=== PATIENT | male | born 1970 | race Caucasian/White ===

== ENCOUNTER 2020-09-25 17:03 | Emergency (ER) | payer MEDICAID, SELFPAY ==
[2020-09-25 17:13] VITALS: BP 225/120; PULSE 83; RESP 16; TEMP 36.6; O2SAT 97
--- NOTE | 2020-09-25 17:19 | W.ED.GENAD ---
Discharge Plan Disposition Patient Disposition: HOME Condition: Stable Discharge Details Clinical Impression: Tooth ache, Initial high blood pressure determined by examination Primary Care Provider: Lana,Local ED Provider: Haylie Miles Home Meds and New Rx's Prescriptions: New amoxicillin-pot clavulanate [Augmentin] 875-125 mg tablet 1 tab PO BID 5 Days Qty: 10 RF: 0 Discharge Instructions Instructions: Toothache (ED) Additional Instructions: Use Hurricaine gel as directed up to 2-3 times a day. Please take Tylenol or Ibuprofen with food every 4-6 hours as needed for pain and swelling. Take antibiotics as directed. You will still need to see a dentist. You are also placed on a care management list to establish PCP to address her blood pressure and general health and wellbeing. Medical Decision Making 50-year-old male presents to the ED with chief complaint of left lower incisor pain. He has a broken tooth which he states has been like that for a a while worse pain over the last 5 days. Denies any problems swallowing, no sore throat, no swelling, no drainage. He denies any sensitivity to heat or cold. He states that he has called every dentist in the near vicinity and cannot get an appointment. He is requesting an antibiotic. On initial exam there is no evidence of abscess or area of fluctuance.He has been taking Ibuprofen which has helped somewhat. Patient was given Hurricaine gel here in department and to go, he was given 30 tablets of Augmentin to go and a prescription for 5 days of Augmentin twice daily. Patient was given dental resources and placed on the care management list with establish care with primary care provider. Discussed blood pressure modification, discuss strict return instructions and verbalized understanding. HPI General Mode of arrival: ambulatory. Date/Time Provider Initiated Documentation: 09/25/20 17:10. Limitations to Documentation: no limitations. Information obtained by: patient. HPI Narrative: 50-year-old male presents to the ED with chief complaint of left lower incisor pain. He has a broken tooth which he states has been like that for a a while worse pain over the last 5 days. Denies any problems swallowing, no sore throat, no swelling, no drainage. He denies any sensitivity to heat or cold. He states that he has called every dentist in the near vicinity and cannot get an appointment. He is requesting an antibiotic. On initial exam there is no evidence of abscess or area of fluctuance.He has been taking Ibuprofen which has helped somewhat. Related Data Home Medications Medication Instructions Recorded Confirmed amoxicillin-pot clavulanate 1 tab PO BID 5 Days #10 tab 09/25/20 [Augmentin] Previous Rx's Medication Instructions Recorded amoxicillin-pot clavulanate 1 tab PO BID 5 Days #10 tab 09/25/20 [Augmentin] General Stated Complaint: DentalOral PAZ: 4 Review of Systems Narrative: Constitutional: Negative for weight loss, alert and oriented, well groomed, normal body habitus, appears comfortable. HEENT: Denies trauma, headaches, blurry vision, nasal discharge, sore throat, trouble swallowing. Reports left lower incisor tooth pain worse over the last 4 to 5 days. Chest: Denies chest pain, palpitations, irregular rhythm, hypertension. Respiratory: Denies Shortness of breath, cough, hemoptysis. GI: Denies abdominal pain, nausea, vomiting, diarrhea, constipation. : Denies dysuria, hematuria, flank pain, rectal bleeding. Neuro: Denies dizziness, blurry vision, weakness, syncope, headache or facial numbness. Hematologic: Denies easy bruising, intolerance to heat or cold, hair loss. [facility] Social History Smoking/Tobacco Use Status: Never Smoking risk assessment performed?: Yes Alcohol Intake: current Alcohol Intake frequency: a few times a week Drug use: Never Substance use type: does not use Do you feel safe at home: Yes Do you feel safe in your relationship?: Yes Exam Narrative Exam Narrative: Constitutional: Alert and oriented x3. Appears stated age. Normal body habitus. Head: Normocephalic, no trauma. Eyes: Pupils PERRLA, Red reflex noted, EOM's intact. Eyelids symmetrical without lesions, discharge, or swelling. ENT: Bilateral TM's WNL, External ear normal to inspection, no mastoid TTP, swelling, or erythema, Nasal turbinates WNL, no nasal discharge. He does have a left lower incisor #22 which is broken down to the dentin, slightly erythemic surrounding gingiva, no visualized abscess or palpated area of fluctuance. He also has a broken right lower molar, #31 and number 32. Which appears chronic. No surrounding abscess or area of fluctuance to that broken tooth either., Posterior pharynx WNL, no exudate. Chest: RRR, Normal S1, S2, distal pulses intact. Patient is hypertensive upon initial exam at 225/120 with a manual blood pressure reading. Resp: Lungs clear to auscultation bilaterally, no wheezes, rales, or rhonchi. Course Vital Signs Vital signs: Vital Signs Temperature 36.6 C 09/25/20 17:13 Pulse 83 09/25/20 17:13 Respiratory Rate 16 09/25/20 17:13 Pulse Oximetry 97 09/25/20 17:13 Temperature 36.6 C 09/25/20 17:13 Temperature Source Tympanic 09/25/20 17:13 Pulse 83 09/25/20 17:13 Respiratory Rate 16 09/25/20 17:13 Respiratory Effort Non-Labored 09/25/20 17:15 Blood Pressure Position Sitting 09/25/20 17:13 Pulse Oximetry 97 09/25/20 17:13 Oxygen Delivery Method Room Air 09/25/20 17:13 Oxygen Flow Rate 0 09/25/20 17:13 Pain Level 7 09/25/20 17:15
--- NOTE | 2020-09-25 17:26 | NUR.NOTE ---
Nursing Note: Referral to Care Management to establish pcp for 1-2 week f/u. Patient hypotensive in ED.
[2020-09-25] MEDS: Amox. 875/Clav. 125, 2 TABS/BTL 1 TAB PO (17:43)
[2020-09-25] MEDS: Benzocaine 20% Gel 30 GM JAR MM (17:43)
[2020-09-25] MEDS: Amoxicillin 875/Clav. 125 TAB PO (17:43)
== END 2020-09-25 17:43 | disposition home or self-care (01) ==
PROVIDERS: Emergency Provider Registered Nurse Emergency
DX: R03.0 Elevated blood-pressure reading, without diagnosis of hypertension (principal); K08.89 Other specified disorders of teeth and supporting structures
CPT/HCPCS: 99283

== ENCOUNTER 2020-09-27 19:02 | Outpatient (REF) | payer MEDICAID, SELFPAY ==
[2020-09-27 15:41] LABS: Abs Immature Grans 0.01 10^3/uL (0.0-0.06); Absolute Basophil Count 0.05 10^3/uL (0.0-0.2); Absolute Eosinophil Count 0.06 10^3/uL (0.0-0.7); Absolute Lymphocyte Count 1.42 10^3/uL (1.2-3.4); Absolute Monocyte Count 0.46 10^3/uL (0.1-0.8); Absolute Neutrophil Count 3.81 10^3/uL (1.2-6.7); Basophils % 0.9; HCT 48.7 % (40.0-50.0); HGB 15.8 g/dL (13.5-17.5); Immature Grans % 0.2; Lymphocytes % 24.4; MCHC 32.4 % (32.0-36.0); MCV 83.2 fL (80-95); MPV 10.6 fL (8.0-11.0); Monocytes % 7.9; Neutrophils % 65.6; Nucleated RBC 0 %; Platelet Count 304 10^3/uL (130-400); RBC 5.85 10^6/uL (4.36-5.78); RDW 12.8 % (11.8-14.1); RDW-SD 39.5 fL; WBC 5.81 10^3/uL (4.4-10.8)
[2020-09-27 15:56] LABS: ALT 43 U/L (16-63); AST 22 U/L (15-37); Alkaline Phosphatase 84 U/L (46-116); Anion Gap 4.8 mmol/L (3-11); BUN 12 mg/dL (7-18); Bilirubin, Total 0.3 mg/dL (0.2-1.0); CO2 30.2 mmol/L (21.0-32.0); CREATININE 0.9 mg/dL (0.70-1.30); Calcium 9.2 mg/dL (8.5-10.1); Calculated LDL 152 mg/dL (<100); Chloride 104 mmol/L (98-107); Cholesterol 239 mg/dL (<200); Glucose 92 mg/dL (74-106); HDL Cholesterol 65 mg/dL (40-60); Potassium 3.6 mmol/L (3.5-5.1); Sodium 139 mmol/L (136-145); Total Protein 7.3 g/dL (6.4-8.2); Triglyceride 114 mg/dL (<150)
[2020-09-27 16:05] LABS: Hemoglobin A1C 5.9 % (<5.7)
== END 2020-09-27 19:03 | disposition home or self-care (01) ==
LOC: LBN 19:02
PROVIDERS: Visit Provider Physician Assistant
DX: I10 Essential (primary) hypertension (principal); R73.09 Other abnormal glucose
CPT/HCPCS: 80053; 80061; 83036; 85025

== ENCOUNTER 2020-10-05 16:17 | Emergency (ER) | payer MEDICAID, SELFPAY ==
[2020-10-05] VITALS (14 sets, daily range): BP systolic 134–165; BP diastolic 83–99; PULSE 57–84; RESP 14–20; TEMP 36.2; O2SAT 95–98
--- NOTE | 2020-10-05 16:30 | RT.EKG_ITS ---
APPROVED REPORT Exam: Resting ECG Patient Location: E HR:61 bpm ECG Measurements Heart Rate 61 AXIS AL 179 P 14 QRSd 108 QRS 16 QT 436 T -27 QTc 440 Conclusion Sinus rhythm...normal P axis, V-rate 60- 99
--- NOTE | 2020-10-05 16:39 | ED.GENADUL_ITS ---
Discharge Plan Disposition Patient Disposition: HOME Condition: Good Discharge Details Clinical Impression: Syncope Primary Care Provider: Edil Key ED Provider: Gloria Cardenas Home Meds and New Rx's Prescriptions: No Action lisinopril 20 mg tablet 20 mg PO DAILY Qty: 30 RF: 0 ibuprofen 200 mg capsule 200 mg PO Q6H PRNRF: 0 acetaminophen [Tylenol] 325 mg tablet 325 mg PO ONCE PRNRF: 0 amlodipine 5 mg tablet 5 mg PO DAILY Qty: 30 RF: 0 Vicodin 5-500 mg Tablet 5 tab PRNRF: 0 amoxicillin-pot clavulanate [Augmentin] 875-125 mg tablet 1 tab PO BID 5 Days Qty: 10 RF: 0 Discharge Instructions Instructions: Syncope (ED) Additional Instructions: Please follow-up with your doctor tomorrow Let them know you had several episodes of syncope It may be a good idea to have an outpatient Holter monitor Should you have recurrent episodes of syncope, chest pain, shortness of breath, dizziness, headache, you must return immediately for reevaluation No driving for the next 24 hours or while symptomatic Medical Decision Making Patient is alert, oriented, of decisional capacity, he was monitored on on telemetry for 4-1/2 hours without dysrhythmia I utilize the [place] syncope rule and patient is considered to be low risk with 2 - troponins, 2 - EKGs, and 4 and half hours of monitoring, I think it is reasonable for patient to follow-up outpatient pulmonary recurrent episodes in the emergency room, patient is ambulatory with steady gait, orthostatic negative, diagnostic labs do not show significant acute pathology, nonfocal neurological exam Patient will need close outpatient follow-up with his primary care physician Encourage patient to have Holter monitor at the discretion of his primary care doctor Early return precautions discussed and patient expressed understanding, discharged home in stable condition with stable vitals Differential Diagnosis Differential Diagnosis: Cardiogenic syncope, vasovagal syncope, TN, dysrhythmia Medical Records Medical records reviewed: Yes I reviewed the patient's medical records. Lab Data Lab results reviewed: Yes I reviewed the patient's lab results. HPI This 50-year-old male with history of hypertension presents status post syncopal event. Patient is status post dental extraction at 1230 today which uneventful. Patient received dental block and tolerated procedure without incident. When he arrived home 330, he felt lightheaded while he was sitting on the floor and nauseous. His and daughter told him that he passed out on 3 separate occasions. There were no injuries reported. Patient denies any chest pain or palpitations associated. He denies any history of similar symptoms in the past. There is no reported seizure-like activity. Patient was started on lisinopril approximately a week ago but he feels his baseline tolerating this well. He denies any headache or dizziness. He denies any significant vision changes. He feels like he is back at baseline. Of note, he has not eaten at all today and is 430 at time of his presentation. Denies vision change. Denies current nausea or vomiting. General Date/Time Provider Initiated Documentation: 10/05/20 16:25 . Related Data Home Medications Medication Instructions Recorded Confirmed amoxicillin-pot clavulanate 1 tab PO BID 5 Days #10 tab 09/25/20 10/05/20 [Augmentin] acetaminophen 325 mg tablet 325 mg PO ONCE PRN 09/27/20 10/05/20 amlodipine 5 mg tablet 5 mg PO DAILY #30 tab 09/27/20 10/05/20 ibuprofen 200 mg capsule 200 mg PO Q6H PRN 09/27/20 10/05/20 lisinopril 20 mg tablet 20 mg PO DAILY #30 tab 10/01/20 10/05/20 hydrocodone-acetaminophen [Vicodin] 5 tab PRN 10/05/20 Previous Rx's Medication Instructions Recorded amoxicillin-pot clavulanate 1 tab PO BID 5 Days #10 tab 09/25/20 [Augmentin] amlodipine 5 mg tablet 5 mg PO DAILY #30 tab 09/27/20 lisinopril 20 mg tablet 20 mg PO DAILY #30 tab 10/01/20 Allergies Allergy/AdvReac Type Severity Reaction Status Date / Time No Known Allergies Allergy Verified 10/05/20 16:25 General Stated Complaint: GenMedical PAZ: 3 Review of Systems Narrative: Review of systems negative x7 aside from where indicated in HPI [facility] Family History (Updated 10/04/20 @ 15:31 by Aylin Interiano) Sister , 42 Cancer Social History (Updated 10/04/20 @ 15:30 by Aylin Interiano) Smoking/Tobacco Use Status: Never Second Hand Exposure: Yes Smoking risk assessment performed?: Yes Alcohol Intake: current Alcohol Intake frequency: a few times a week Drug use: Never Substance use type: does not use Caregiver/Support person: No Household members: spouse Housing: house Communication Needs: None Pets and animals: Yes Pets and animals: cat(s), dog(s) and horse(s) Sexually active: Yes Do you think of yourself as: straight/heterosexual Current gender identity: male What is your relationship status?: How often do you talk on the phone with friends or family?: three or more times per week Panel score (0-1 are the most socially isolated patients): 2 What type of physical activity do you participate in: walking Duration: > 90 minutes/day Frequency: 5-6 times per week Do you feel safe at home: Yes Do you feel safe in your relationship?: Yes Exam Const General: cooperative and healthy appearing Eyes Pupils: PERRL Resp Effort & Inspection: normal respiratory effort Auscultation: clear to auscultation bilaterally Cardio Rate: regular rate Rhythm: regular rhythm GI Inspection: normal to inspection Rectal Exam: visual inspection normal Neuro General: patient alert and patient oriented x3 Cranial Nerves: CN's II-XI intact bilaterally Sensory Exam: no sensory deficits noted Extrem Other: No calf tenderness or swelling appreciated Course Vital Signs Vital signs: Vital Signs Temperature 36.2 C L 10/05/20 16:20 Pulse 57 L 10/05/20 16:20 Respiratory Rate 14 10/05/20 16:20 Blood Pressure 134/83 10/05/20 16:20 Pulse Oximetry 96 10/05/20 16:20 Temperature 36.2 C L 10/05/20 16:20 Temperature Source Skin 10/05/20 16:20 Pulse 57 L 10/05/20 16:20 Respiratory Rate 14 10/05/20 16:26 Respiratory Effort 10/05/20 16:26 Respiratory Depth Normal 10/05/20 16:26 Respiratory Pattern Normal 10/05/20 16:26 Blood Pressure 134/83 10/05/20 16:20 Blood Pressure Position Supine 10/05/20 16:20 Pulse Oximetry 96 10/05/20 16:20 Oxygen Delivery Method Room Air 10/05/20 16:20 Oxygen Flow Rate 0 10/05/20 16:20 Pain Level 2 10/05/20 16:20
[2020-10-05 17:02] LABS: Abs Immature Grans 0.06 10^3/uL (0.0-0.06); Absolute Basophil Count 0.06 10^3/uL (0.0-0.2); Absolute Eosinophil Count 0.03 10^3/uL (0.0-0.7); Absolute Lymphocyte Count 0.96 10^3/uL (1.2-3.4); Absolute Monocyte Count 0.98 10^3/uL (0.1-0.8); Basophils % 0.4; Eosinophils % 0.2; HCT 45.6 % (40.0-50.0); Immature Grans % 0.4; Lymphocytes % 6.1; MCH 27.4 pg (27.0-33.0); MCHC 32.9 % (32.0-36.0); MCV 83.4 fL (80-95); MPV 10.2 fL (8.0-11.0); Monocytes % 6.2; Neutrophils % 86.7; Nucleated RBC 0 %; Platelet Count 299 10^3/uL (130-400); RBC 5.47 10^6/uL (4.36-5.78); RDW 12.7 % (11.8-14.1); RDW-SD 38.8 fL; WBC 15.79 10^3/uL (4.4-10.8)
[2020-10-05 17:12] LABS: Absolute Neutrophil Count 13.69 10^3/uL (1.2-6.7)
[2020-10-05 17:27] LABS: ALT 31 U/L (16-63); AST 15 U/L (15-37); Albumin 3.8 g/dL (3.4-5.0); Alkaline Phosphatase 69 U/L (46-116); BUN 14 mg/dL (7-18); Bilirubin, Total 0.5 mg/dL (0.2-1.0); Calcium 8.8 mg/dL (8.5-10.1); Chloride 102 mmol/L (98-107); Glucose 118 mg/dL (74-106); Magnesium 2.2 mg/dL (1.8-2.4); Sodium 139 mmol/L (136-145); Total Protein 7.3 g/dL (6.4-8.2)
[2020-10-05 17:39] LABS: Troponin I < 0.05 ng/mL (<0.06)
[2020-10-05 20:29] LABS: Troponin I < 0.05 ng/mL (<0.06)
== END 2020-10-05 20:41 | disposition home or self-care (01) ==
PROVIDERS: Emergency Provider Physician Assistant; PCP Nurse Practitioner Family
DX: R55 Syncope and collapse (principal)
CPT/HCPCS: 36415; 36416; 80053; 82962; 93005; 99284; 83735; 84484; 85025; 93010

== ENCOUNTER 2021-10-31 04:13 | Outpatient (CLI) | payer MEDICAID, SELFPAY ==
[2021-10-31 16:53] LABS: Hemoglobin A1C 5.8 % (<5.7)
[2021-10-31 17:15] LABS: Calculated LDL 143 mg/dL (<100); Cholesterol 238 mg/dL (<200); HDL Cholesterol 71 mg/dL (40-60); Triglyceride 123 mg/dL (<150)
== END 2021-10-31 04:14 | disposition home or self-care (01) ==
LOC: LBO 04:13
PROVIDERS: PCP Nurse Practitioner Family; Visit Provider Nurse Practitioner Family
DX: E78.5 Hyperlipidemia, unspecified (principal); I10 Essential (primary) hypertension; R73.03 Prediabetes
CPT/HCPCS: 36415; 80061; 82565; 83036

== ENCOUNTER 2022-11-03 02:52 | Outpatient (CLI) | payer MEDICAID, SELFPAY ==
[2022-11-03 15:42] LABS: CREATININE 1.1 mg/dL (0.70-1.30); Calculated LDL 163 mg/dL (<100); Cholesterol 257 mg/dL (<200); Estimated GFR 81.78 (mL/min/1.73m2); HDL Cholesterol 70 mg/dL (40-60); Potassium 3.5 mmol/L (3.5-5.1); Triglyceride 122 mg/dL (<150)
[2022-11-05 13:22] LABS: PSA, Screening 0.5 ng/mL (<=3.5)
== END 2022-11-03 02:53 | disposition home or self-care (01) ==
LOC: LBO 02:52
PROVIDERS: PCP Nurse Practitioner Family; Visit Provider Nurse Practitioner Family
DX: Z12.5 Encounter for screening for malignant neoplasm of prostate (principal); E78.5 Hyperlipidemia, unspecified; I10 Essential (primary) hypertension
CPT/HCPCS: 36415; 80061; 84153; 82565; 84132

== ENCOUNTER 2023-01-27 04:10 | Inpatient (IN) | payer MEDICAID, SELFPAY ==
[2023-01-27] VITALS (35 sets, daily range): BP systolic 107–141; BP diastolic 59–86; PULSE 64–82; RESP 11–27; TEMP 36.4–37.8; O2SAT 88–98; BMI 33.6
--- NOTE | 2023-01-27 04:15 | RT.EKG_ITS ---
APPROVED REPORT Exam: Resting ECG Reason for Exam: abd pain Patient Location: E HR:77 bpm ECG Measurements Heart Rate 77 AXIS NE 154 P 12 QRSd 134 QRS 4 QT 412 T -25 QTc 468 Conclusion Sinus rhythm...normal P axis, V-rate 60- 99 Nonspecific intraventricular conduction delay...QRSd >115mS, not LBBB/RBBB
--- NOTE | 2023-01-27 04:15 | DI.CT_ITS ---
Exam(s) CT ABDOMEN PELVIS W EXAM: CT ABDOMEN PELVIS W CLINICAL HISTORY: RLQ abdominal pain TECHNIQUE: Imaging Protocol: Axial computed tomography images with coronal and sagittal reformatted images were created and reviewed CONTRAST MATERIAL: Intravenous: Omnipaque 350 Contrast volume:100 mL Oral: No COMPARISON: No exams were available for comparison FINDINGS: The dome of the liver was not included on this examination. Atelectatic changes are seen in the lung bases. ABDOMEN: Lung Bases: Atelectatic changes are seen in the lung bases. There is a 3 mm nodule in the left lower lobe. Liver: Normal density. No measurable mass. Portal, Superior Mesenteric, and Splenic Veins: Unremarkable. Gallbladder and Biliary Tract: No radiodense calculus or dilation. Pancreas: Normal density, no abnormal calcifications or inflammatory process. Spleen: Normal. Adrenals: No masses seen. Kidneys: Normal size, contour and axis. No radiodense stones or obstructive uropathy. There is a subc entimeter hypodensity in the right kidney. It is too small for further characterization but likely r eflects a small cyst. No follow-up is recommended. Abdominal Aorta: Abdominal portion non-dilated. Mild atherosclerosis. Bowel: There is mild thickening of the wall of the terminal ileum adjacent to the inflamed appendix. There is no evidence of bowel obstruction. The appendix is enlarged measuring 1.1 cm in diameter. There is enhancement of the wall and Mariah appendiceal inflammation. There is an appendicolith seen i n the tail of the pancreas. There does appear to be a small amount of extraluminal air at the tip of the appendix consistent with perforation. Peritoneal Cavity: No ascites, collection or mesenteric inflammatory response. No free air. Lymph Nodes: Within normal limits. Bones: Within normal limits for the patient's age. Soft Tissues: There is a small fat containing umbilical hernia. PELVIS: Bladder: Symmetric distention, no gross wall thickening. Reproductive Organs: Unremarkable as visualized. Lymph Nodes: Within normal limits. Bones: Within normal limits for the patient's age. IMPRESSION: Findings consistent with a perforated acute appendicitis. RADIATION DOSE DELIVERED: 1,046.52mGy.cm Total DLP DATA REPOSITORY: All CT scans at this facility are submitted to the National Radiology Data Registry (NRDR) Dose Index Registry (DIR) with the [employer] ([employer]). RADIATION OPTIMIZATION: All CT scans at this facility use at least one of these dose optimization te chniques: automated exposure control; mA and/or kV adjustment per patient size (includes targeted exa ms where dose is matched to clinical indication); or iterative reconstruction.
[2023-01-27] MEDS: Normal Saline 1,000 ML 1000 ML IV (04:30)
[2023-01-27 04:34] LABS: Abs Immature Grans 0.05 10^3/uL (0.0-0.06); Absolute Eosinophil Count 0.03 10^3/uL (0.0-0.7); Absolute Monocyte Count 1.62 10^3/uL (0.1-0.8); Basophils % 0.3; Eosinophils % 0.2; HCT 44.1 % (40.0-50.0); HGB 14.7 g/dL (13.5-17.5); Immature Grans % 0.3; Lactate 0.9 mmol/L (0.6-1.4); Lymphocytes % 6.4; MCH 27.4 pg (27.0-33.0); MCHC 33.3 % (32.0-36.0); MCV 82 fL (80-95); MPV 10.1 fL (8.0-11.0); Monocytes % 10.2; Neutrophils % 82.6; Platelet Count 335 10^3/uL (130-400); RBC 5.37 10^6/uL (4.36-5.78); RDW 12.8 % (11.8-14.1); RDW-SD 38.5 fL; WBC 15.86 10^3/uL (4.4-10.8)
[2023-01-27 04:36] LABS: Absolute Basophil Count 0.05 10^3/uL (0.0-0.2); Absolute Lymphocyte Count 1.02 10^3/uL (1.2-3.4); Bilirubin Small (Negative); Blood Small (Negative); Clarity Clear (Clear); Glucose Negative (Negative); Ketones Trace mg/dL (Negative); Leukocyte Esterase Negative (Negative); Nitrite Negative (Negative)
[2023-01-27 04:41] LABS: Bacteria Rare HPF (Negative); C & S Indicated? No; Casts Negative LPF (Negative); Crystals Negative HPF (Negative); Epithelial Cells Rare HPF (Negative); Mucus Moderate (Negative); WBC Negative HPF (0-5)
[2023-01-27 04:43] LABS: Diff Comment Agrees w/ Instrument; RBC Morphology Normal
[2023-01-27 04:51] LABS: ALT 73 U/L (16-63); AST 52 U/L (15-37); Albumin 3.3 g/dL (3.4-5.0); Alkaline Phosphatase 102 U/L (46-116); BUN 18 mg/dL (7-18); Bilirubin, Total 0.7 mg/dL (0.2-1.0); CREATININE 1.2 mg/dL (0.70-1.30); Calcium 9.1 mg/dL (8.5-10.1); Chloride 96 mmol/L (98-107); Estimated GFR 73.22 (mL/min/1.73m2); Glucose 121 mg/dL (74-106); Lipase 53 U/L (16-77); Magnesium 2.3 mg/dL (1.8-2.4); Potassium 3.3 mmol/L (3.5-5.1); Sodium 135 mmol/L (136-145); Troponin I < 50 ng/L (<or=60)
--- NOTE | 2023-01-27 05:15 | W.ED.GENAD ---
Discharge Plan Disposition Patient Disposition: Admit to [facility] Condition: Stable Discharge Details Clinical Impression: Acute appendicitis with localized peritonitis Primary Care Provider: Edil Key ED Provider: Quan Burch Home Meds and New Rx's Prescriptions: Continued ibuprofen 200 mg capsule 200 mg PO Q6H PRN acetaminophen [Tylenol] 325 mg tablet 325 mg PO ONCE PRN lisinopril-hydrochlorothiazide 20-25 mg tablet 1 tab PO DAILY Qty: 90 4RF amlodipine 5 mg tablet 5 mg PO DAILY Qty: 90 4RF amlodipine 5 mg tablet 5 mg PO DAILY Qty: 90 4RF Discharge Data Discharge Physician: Quan Burch Medical Decision Making Patient with 3 days of anorexia right lower quadrant abdominal pain fever chills. Right lower quadrant exam. Patient had labs done which showed a white count of 15,000 with a left shift and a CT scan of the abdomen pelvis with IV contrast which shows acute perforated appendicitis. Patient will need to be admitted and taken to the operating room for appendectomy. Patient had Unasyn IV in the emergency department for antibiotics Differential Diagnosis Differential Diagnosis: 1. Acute appendicitis 2. Acute diverticulitis 3. Gastrioenteritis Medical Records Medical records reviewed: Yes I reviewed the patient's medical records. Imaging Data Radiologic Study: Attestation: I personally reviewed and interpreted this imaging study as follows: Imaging: CT Scan My impression: Acute appendicitis Radiologist's impression: Acute perforated appendicitis Lab Data Lab results reviewed: Yes I reviewed the patient's lab results. Labs: Ramin Yadav?(Murali)??53??M??1970 ? Allergy/Adv: No Known Allergies (More??) Back White Blood Count (Complete) 01/27/23 Red Blood Count (Complete) 01/27/23 Hemoglobin (Complete) 01/27/23 Hematocrit (Complete) 01/27/23 Mean Corpuscular Volume (Complete) 01/27/23 Mean Corpuscular Hemoglobin (Complete) 01/27/23 Mean Corpuscular Hemoglobin Concent (Complete) 01/27/23 Red Cell Distribution Width (Complete) 01/27/23 Platelet Count (Complete) 01/27/23 Mean Platelet Volume (Complete) 01/27/23 Immature Granulocytes % (Complete) 01/27/23 Neutrophils % (Complete) 01/27/23 Lymphocytes % (Complete) 01/27/23 Monocytes % (Complete) 01/27/23 Eosinophils % (Complete) 01/27/23 Basophils % (Complete) 01/27/23 Nucleated Red Blood Cells % (Complete) 01/27/23 Absolute Neutrophil (Complete) 01/27/23 Absolute Lymphocytes (Complete) 01/27/23 Absolute Monocytes (CBC) (Complete) 01/27/23 Absolute Eosinophils (CBC) (Complete) 01/27/23 Absolute Basophils (CBC) (Complete) 01/27/23 Red Blood Cell Morphology (Complete) 01/27/23 RUN DATE: 01/27/23 [facility] PAGE 1 RUN TIME: [id number] RUN USER: [place] [address] Halie Hamilton MD PATIENT REPORT PATIENT: Ramin Yadav LOC: ER U #: [id number] /SX: 1970 M ROOM: RE01/27/[address]: QUAN BURCH MD STATUS: REG ER BED: DIS: SPEC #: [id number] ARYAN: 01/27/23 STATUS: COMP REQ #: [id number] RECD: 01/27/23 [facility] DR: QUAN BURCH MD ENTERED: 01/27/[address]: CATARINA [employer]ER,EDIL R FAX #: ORDERED: CBC/Diff Test Result Flag Reference Verified WBC 15.86 H 4.4-10.8 10^3/uL 01/27/23 RBC 5.37 4.36-5.78 10^6/uL 01/27/23 HGB 14.7 13.5-17.5 g/dL 01/27/23 HCT 44.1 40.0-50.0 % 01/27/23 MCV 82 80-95 fL 01/27/23 MCH 27.4 27.0-33.0 pg 01/27/23 MCHC 33.3 32.0-36.0 % 01/27/23 RDW 12.8 11.8-14.1 % 01/27/23 Platelet Count 335 130-400 10^3/uL 01/27/23 MPV 10.1 8.0-11.0 fL 01/27/23 Neutrophils % 82.6 01/27/23 Lymphocytes % 6.4 01/27/23 Monocytes % 10.2 01/27/23 Eosinophils % 0.2 01/27/23 Basophils % 0.3 01/27/23 Immature Grans % 0.3 01/27/23 Nucleated RBC 0.0 0.0-0.3 % 01/27/23 Absolute Neutrophil Count 13.10 H 1.2-6.7 10^3/uL 01/27/23 Absolute Lymphocyte Count 1.02 L 1.2-3.4 10^3/uL 01/27/23 Absolute Monocyte Count 1.62 H 0.1-0.8 10^3/uL 01/27/23 Absolute Eosinophil Count 0.03 0.0-0.7 10^3/uL 01/27/23 Absolute Basophil Count 0.05 0.0-0.2 10^3/uL 01/27/23 Diff Comment Agrees w/ Instrument 01/27/23 RBC Morphology Normal 01/27/23 Patient: Ramin Yadav LABORATORY Acct#[id number] Unit#[id number] The last RUN DATE: 01/27/23 [facility] PAGE 1 RUN TIME: [id number] RUN USER: [place] [address] Halie Hamilton MD PATIENT REPORT PATIENT: Ramin Yadav LOC: ER U #: [id number] /SX: 1970 M ROOM: RE01/27/[address]: QUAN BURCH MD STATUS: REG ER BED: DIS: SPEC #: [id number] ARYAN: 01/27/23 STATUS: COMP REQ #: [id number] RECD: 01/27/[address]: QUAN BURCH MD ENTERED: 01/27/23 [facility] DR: CATARINA FLORES,EDIL R FAX #: ORDERED: CMP, MG, Lipase, Troponin I Test Result Flag Reference Verified Calcium 9.1 8.5-10.1 mg/dL 01/27/23 Glucose 121 H 74-106 mg/dL 01/27/23 BUN 18 7-18 mg/dL 01/27/23 Creatinine 1.2 0.70-1.30 mg/dL 01/27/23 Estimated GFR 73.22 mL/min/1.73m2 01/27/23 The eGFR is calculated from a serum creatinine using the CKD-EPI 2020 equation. Other variables required for the equation are gender and age; this equation does not include a race coefficient. This equation has similar overall performance to previous equations except values may differ, in particular, in patients with higher values of eGFR and younger-aged adults. Total Protein 8.0 6.4-8.2 g/dL 01/27/23 Albumin 3.3 L 3.4-5.0 g/dL 01/27/23 Bilirubin, Total 0.7 0.2-1.0 mg/dL 01/27/23 Alk Phos 102 46-116 U/L 01/27/23 Sodium 135 L 136-145 mmol/L 01/27/23 Potassium 3.3 L 3.5-5.1 mmol/L 01/27/23 Chloride 96 L 98-107 mmol/L 01/27/23 CO2 32.0 21.0-32.0 mmol/L 01/27/23 Anion Gap 7.0 3-11 mmol/L 01/27/23 AST 52 H 15-37 U/L 01/27/23 ALT 73 H 16-63 U/L 01/27/23 Magnesium 2.3 1.8-2.4 mg/dL 01/27/23 Lipase 53 16-77 U/L 01/27/23 Cardiac Troponin I < 50 <or=60 ng/L 01/27/23 [facility] RUN DATE: 01/27/23 [facility] PAGE 1 RUN TIME: [phone] RUN USER: [place] [address] Halie Hamilton MD PATIENT REPORT PATIENT: Ramin Yadav LOC: ER U #: [id number] /SX: 1970 M ROOM: RE01/27/[address]: QUAN BURCH MD STATUS: REG ER BED: DIS: SPEC #: [id number] ARYAN: 01/27/23 STATUS: COMP REQ #: [id number] RECD: 01/27/[address]: QUAN BURCH MD ENTERED: 01/27/[address]: CATARINA [employer],EDIL R FAX #: ORDERED: Urinalysis, UA Micro Test Result Flag Reference Verified Color Yellow Yellow 01/27/23 Clarity Clear Clear 01/27/23 Specific Melstone 1.020 1.005-1.025 01/27/23 pH 6.0 5-8 01/27/23 Leukocyte Esterase Negative Negative 01/27/23 Nitrite Negative Negative 01/27/23 Protein 30 H Negative mg/dL 01/27/23 Glucose Negative Negative mg/dL 01/27/23 Ketones Trace H Negative mg/dL 01/27/23 Urobilinogen 1.0 H Up to 0.2 mg/dL 01/27/23 Bilirubin Small H Negative 01/27/23 Blood Small H Negative 01/27/23 WBC Negative 0-5 HPF 01/27/23 RBC 3-5 H 0-2 HPF 01/27/23 Epithelial Cells Rare Negative HPF 01/27/23 Bacteria Rare Negative HPF 01/27/23 Crystals Negative Negative HPF 01/27/23 Mucus Moderate Negative 01/27/23 Casts Negative Negative LPF 01/27/23 C & S Indicated? No 01/27/23 Patient: Ramin Yadav LABORATORY Acct#[id number] Unit#[id number] ECG Data Attestation: I personally reviewed and interpreted this ECG (s) as follows: Prior ECG tracings: not available for review Interpretation: Normal sinus rhythm heart rate [address]-T changes normal axis HPI General Date/Time Provider Initiated Documentation: 01/27/23 04:27. HPI Narrative: Patient presents to the emergency department complains of 3 days of right lower quadrant abdominal pain associated with fever chills and decreased appetite. States that the pain is localized to the right lower quadrant after it started in the midepigastric area and the said that he did not want to come to the hospital until this morning when the pain got progressively worse in the right lower quadrant Related Data Home Medications Medication Instructions Recorded Confirmed acetaminophen 325 mg tablet 325 mg PO ONCE PRN 09/27/20 01/27/23 (Tylenol) ibuprofen 200 mg capsule 200 mg PO Q6H PRN 09/27/20 01/27/23 amlodipine 5 mg tablet 5 mg PO DAILY #90 tabs 01/11/23 01/27/23 amlodipine 5 mg tablet 5 mg PO DAILY #90 tabs 01/11/23 01/27/23 lisinopril 20 1 tab PO DAILY #90 tabs 01/11/23 01/27/23 mg-hydrochlorothiazide 25 mg tablet Previous Rx's Medication Instructions Recorded amlodipine 5 mg tablet 5 mg PO DAILY #90 tabs 01/11/23 amlodipine 5 mg tablet 5 mg PO DAILY #90 tabs 01/11/23 lisinopril 20 1 tab PO DAILY #90 tabs 01/11/23 mg-hydrochlorothiazide 25 mg tablet Allergies Allergy/AdvReac Type Severity Reaction Status Date / Time No Known Allergies Allergy Verified 01/27/23 04:19 General Stated Complaint: Abd Prob PAZ: 3 Review of Systems Constitutional Constitutional: Reports anorexia, Reports chills and Reports fever(s) Eyes Eyes: Reports as per HPI and Reports system reviewed and no additional complaints, except as documented ENT Ears, Nose, Mouth, and Throat: Reports system reviewed and no additional complaints, except as documented Cardiovascular Cardiovascular: Reports as per HPI Respiratory Respiratory: Reports as per HPI and Reports system reviewed and no additional complaints, except as documented Gastrointestinal Gastrointestinal: Reports as per HPI Genitourinary Genitourinary: Reports system reviewed and no additional complaints, except as documented Musculoskeletal Musculoskeletal: Reports system reviewed and no additional complaints, except as documented Integumentary/Breasts Skin/Breast: Reports system reviewed and no additional complaints, except as documented Neurologic Neurologic: Reports system reviewed and no additional complaints, except as documented Psychiatric Psychiatric: Reports system reviewed and no additional complaints, except as documented Endocrine Endocrine: Reports system reviewed and no additional complaints, except as documented Hematologic/Lymphatic Hematologic/Lymphatic: Reports system reviewed and no additional complaints, except as documented Allergic/Immunologic Allergic/Immunologic: Reports system reviewed and no additional complaints, except as documented PFSH All Active Problems (Updated 01/27/23 @ 06:19 by Quan Burch MD) Acute appendicitis with localized peritonitis (Acute) Hyperlipidemia (Acute) Hypertension (Chronic) Family History Sister , 42 Cancer Social History Smoking/Tobacco Use Status: Never Second Hand Exposure: Yes Smoking risk assessment performed?: Yes Alcohol Intake: current Alcohol Intake frequency: a few times a week Alcohol type: beer Drug use: Never Substance use type: does not use Household members: spouse current occupation: contractor Pets and animals: Yes Pets and animals: cat(s), dog(s) and horse(s) Sexually active: Yes Do you think of yourself as: straight/heterosexual What type of physical activity do you participate in: walking Do you feel safe at home: Yes Do you feel safe in your relationship?: Yes Exam Narrative Exam Narrative: Exam; vitals signs as reported above Constitutional; In no acute distress, afebrile General: cooperative, healthy appearing, comfortable and no acute distress HEENT: Head: normal to inspection, no palpable skull fracture and normocephalic Eyes: l: appearance normal, both eyes and all related structures ]Pupils: PERRL EOM: EOM intact bilaterally Direct ophthalmoscopy: normal light reflex, normal conjunctiva, normal visual acuity Neck no JVD, supple Neck: normal visual inspection, full ROM and no lymphadenopathy Chest Chest: normal inspection of the chest Respiratory : normal respiratory effort and able to speak in complete sentences Cardio Rate: regular rate Rhythm: regular rhythm normal heart sounds S1 and S2 no murmurs, gallops, or rubs GI Inspection: normal to inspection, normal bowel sounds, soft, tenderness with rebound in the right lower quadrant, non distended, no organomegally Back/Spine/ no CVA tenderness Thoracic/Lumbar Spine: no tenderness or deformities Skin no rashes or lesions Neuro: patient alert and no meningeal signs, Cranial Nerves: CN's II-XI intact bilaterally, Cognition: normal cognition, Speech: speech normal, Gait: normal gait, Depp tendon reflexes normal 2+ Extremities, no edema, full range of motion, normal strength Course Vital Signs Vital signs: Vital Signs Temperature 37.1 C 01/27/23 04:14 Pulse 82 01/27/23 04:14 Respiratory Rate 16 01/27/23 04:14 Blood Pressure 128/75 01/27/23 04:14 Pulse Oximetry 96 01/27/23 04:14 Temperature 37.1 C 01/27/23 04:14 Pulse 77 01/27/23 04:46 Pulse 79 01/27/23 04:46 Respiratory Rate 24 01/27/23 04:46 Respiratory Effort Normal 01/27/23 04:14 Blood Pressure 129/74 01/27/23 04:46 Blood Pressure Mean 87 01/27/23 04:46 Blood Pressure Position Supine 01/27/23 04:14 Pulse Oximetry 96 01/27/23 04:46 Oxygen Delivery Method Room Air 01/27/23 04:14 Oxygen Flow Rate 0 01/27/23 04:14 Pain Level 3 01/27/23 04:14 Lab/Test Results Lab/Test Results: Laboratory Tests Range/Units 01/27/23 01/27/23 01/27/23 04:15 04:15 04:15 WBC (4.4-10.8) 10^3/uL RBC (4.36-5.78) 10^6/uL Hgb (13.5-17.5) g/dL Hct (40.0-50.0) % MCV (80-95) fL MCH (27.0-33.0) pg MCHC (32.0-36.0) % RDW (11.8-14.1) % Plt Count (130-400) 10^3/uL MPV (8.0-11.0) fL Immature Gran % Neutrophils % Lymphocytes % Monocytes % Eosinophils % Basophils % Nucleated RBC % (0.0-0.3) % Absolute Neutrophils (1.2-6.7) 10^3/uL Absolute Lymphocytes (1.2-3.4) 10^3/uL Absolute Monocytes (0.1-0.8) 10^3/uL Absolute Eosinophils (0.0-0.7) 10^3/uL Absolute Basophils (0.0-0.2) 10^3/uL RBC Morphology VBG Lactate (0.6-1.4) mmol/L 0.9 Sodium (136-145) mmol/L 135 L Potassium (3.5-5.1) mmol/L 3.3 L Chloride (98-107) mmol/L 96 L Carbon Dioxide (21.0-32.0) mmol/L 32.0 Anion Gap (3-11) mmol/L 7.0 BUN (7-18) mg/dL 18 Creatinine (0.70-1.30) mg/dL 1.2 Est GFR (CKD-EPI 2020) (mL/min/1.73m2) 73.22 Glucose (74-106) mg/dL 121 H Calcium (8.5-10.1) mg/dL 9.1 Magnesium (1.8-2.4) mg/dL 2.3 Total Bilirubin (0.2-1.0) mg/dL 0.7 AST (15-37) U/L 52 H ALT (16-63) U/L 73 H Alkaline Phosphatase (46-116) U/L 102 Troponin I (<or=60) ng/L < 50 Total Protein (6.4-8.2) g/dL 8.0 Albumin (3.4-5.0) g/dL 3.3 L Lipase (16-77) U/L 53 Urine Color (Yellow) Yellow Urine Clarity (Clear) Clear Urine pH (5-8) 6.0 Ur Specific Melstone (1.005-1.025) 1.020 Urine Protein (Negative) mg/dL 30 H Urine Ketones (Negative) mg/dL Trace H Urine Blood (Negative) Small H Urine Nitrite (Negative) Negative Urine Bilirubin (Negative) Small H Urine Urobilinogen (Up to 0.2) mg/dL 1.0 H Ur Leukocyte Esterase (Negative) Negative Urine RBC (0-2) HPF 3-5 H Urine WBC (0-5) HPF Negative Ur Epithelial Cells (Negative) HPF Rare Urine Crystals (Negative) HPF Negative Urine Bacteria (Negative) HPF Rare Urine Casts (Negative) LPF Negative Urine Mucus (Negative) Moderate Ur Culture Indicated? No Urine Glucose (Negative) mg/dL Negative Range/Units 01/27/23 04:15 WBC (4.4-10.8) 10^3/uL 15.86 H RBC (4.36-5.78) 10^6/uL 5.37 Hgb (13.5-17.5) g/dL 14.7 Hct (40.0-50.0) % 44.1 MCV (80-95) fL 82 MCH (27.0-33.0) pg 27.4 MCHC (32.0-36.0) % 33.3 RDW (11.8-14.1) % 12.8 Plt Count (130-400) 10^3/uL 335 MPV (8.0-11.0) fL 10.1 Immature Gran % 0.3 Neutrophils % 82.6 Lymphocytes % 6.4 Monocytes % 10.2 Eosinophils % 0.2 Basophils % 0.3 Nucleated RBC % (0.0-0.3) % 0.0 Absolute Neutrophils (1.2-6.7) 10^3/uL 13.10 H Absolute Lymphocytes (1.2-3.4) 10^3/uL 1.02 L Absolute Monocytes (0.1-0.8) 10^3/uL 1.62 H Absolute Eosinophils (0.0-0.7) 10^3/uL 0.03 Absolute Basophils (0.0-0.2) 10^3/uL 0.05 RBC Morphology Normal VBG Lactate (0.6-1.4) mmol/L Sodium (136-145) mmol/L Potassium (3.5-5.1) mmol/L Chloride (98-107) mmol/L Carbon Dioxide (21.0-32.0) mmol/L Anion Gap (3-11) mmol/L BUN (7-18) mg/dL Creatinine (0.70-1.30) mg/dL Est GFR (CKD-EPI 2020) (mL/min/1.73m2) Glucose (74-106) mg/dL Calcium (8.5-10.1) mg/dL Magnesium (1.8-2.4) mg/dL Total Bilirubin (0.2-1.0) mg/dL AST (15-37) U/L ALT (16-63) U/L Alkaline Phosphatase (46-116) U/L Troponin I (<or=60) ng/L Total Protein (6.4-8.2) g/dL Albumin (3.4-5.0) g/dL Lipase (16-77) U/L Urine Color (Yellow) Urine Clarity (Clear) Urine pH (5-8) Ur Specific Melstone (1.005-1.025) Urine Protein (Negative) mg/dL Urine Ketones (Negative) mg/dL Urine Blood (Negative) Urine Nitrite (Negative) Urine Bilirubin (Negative) Urine Urobilinogen (Up to 0.2) mg/dL Ur Leukocyte Esterase (Negative) Urine RBC (0-2) HPF Urine WBC (0-5) HPF Ur Epithelial Cells (Negative) HPF Urine Crystals (Negative) HPF Urine Bacteria (Negative) HPF Urine Casts (Negative) LPF Urine Mucus (Negative) Ur Culture Indicated? Urine Glucose (Negative) mg/dL
[2023-01-27] MEDS: Omnipaque 350 MG/ML 100 ML BTL IJ (05:36)
[2023-01-27] MEDS: Normal Saline - Diluent 50 ML VIAL IJ (05:38)
--- NOTE | 2023-01-27 06:00 | DI.VRAD_ITS ---
PROCEDURE INFORMATION: Exam: CT Abdomen And Pelvis With Contrast Exam date and time: 01/27/2023 5:36 AM Age: 53 years old Clinical indication: Abdominal pain; Localized; Right lower quadrant (rlq); Additional info: Rlq abdominal pain TECHNIQUE: Imaging protocol: Computed tomography of the abdomen and pelvis with contrast. Radiation optimization: All CT scans at this facility use at least one of these dose optimization techniques: automated exposure control; mA and/or kV adjustment per patient size (includes targeted exams where dose is matched to clinical indication); or iterative reconstruction. Contrast material: OMNI 350; Contrast volume: 100 ml; Contrast route: INTRAVENOUS (IV); COMPARISON: No relevant prior studies available. FINDINGS: Limitations: Mild motion artifact. Lungs: Subsegmental atelectasis in the lungs. Liver: No focal hepatic lesion identified. Gallbladder and bile ducts: No radiodense gallbladder calculi seen. Pancreas: No CT evidence for acute pancreatitis. Spleen: Spleen mildly elongated to 12.4 cm in anterior-posterior dimension. Adrenal glands: Adrenal thickening. Kidneys and ureters: Low attenuation lesion in the right kidney too small to accurately characterize on CT. No hydronephrosis or CT evidence for pyelonephritis. Stomach and bowel: Bowel wall thickening in the right lower quadrant, likely reactive. Appendix: The appendix is identified in the posterior right lower quadrant. It is dilated to 10 mm, fluid-filled, and surrounded by inflammatory change. Findings are consistent with appendicitis. There is a small amount of extraluminal gas and fluid adjacent to the appendix consistent with perforation. No diffuse pneumoperitoneum appreciated at this time. Intraperitoneal space: See Appendix finding. Vasculature: No abdominal aortic aneurysm. Lymph nodes: Nonspecific mesenteric and retroperitoneal lymph nodes. Urinary bladder: No acute findings. Reproductive: No acute findings. Bones/joints: No pertinent acute abnormality seen. Soft tissues: No pertinent acute abnormality seen. IMPRESSION: 1. Findings consistent with perforated appendicitis. 2. THIS REPORT CONTAINS FINDINGS THAT MAY BE CRITICAL TO PATIENT CARE. The findings were verbally communicated via telephone conference with COLBY BURCH at 5:59 AM EDT on 01/27/2023. The findings were acknowledged and understood. Dictated and Authenticated by: Sonam Gaston MD. Ordering:PANCHITO Glass MD
[2023-01-27] MEDS: AMPICILLIN/SULBACTAM 3 GM in Normal Saline 100 ML IVPB (06:16)
--- NOTE | 2023-01-27 07:22 | ANES.PREOP_ITS ---
General Info Date of Service Date Performed: 01/27/23 Height: 5 ft 7 in Weight: 97.522 kg Body Mass Index (BMI): 33.6 Meds Allergies and Home Medications Allergies Allergy/AdvReac Type Severity Reaction Status Date / Time No Known Allergies Allergy Verified 01/27/23 04:19 Home Medication Medication Instructions Recorded acetaminophen 325 mg tablet 325 mg PO ONCE PRN 09/27/20 (Tylenol) ibuprofen 200 mg capsule 200 mg PO Q6H PRN 09/27/20 amlodipine 5 mg tablet 5 mg PO DAILY #90 tabs 01/11/23 amlodipine 5 mg tablet 5 mg PO DAILY #90 tabs 01/11/23 lisinopril 20 1 tab PO DAILY #90 tabs 01/11/23 mg-hydrochlorothiazide 25 mg tablet Current Visit Medications: Current Medications Generic Name Dose Route Start Last Admin Trade Name Freq PRN Reason Stop Dose Admin Iohexol 100 ml 01/27/23 05:45 01/27/23 05:36 Omnipaque 350 Mg/Ml 100 Ml Btl IJ 02/26/23 23:59 100 ml DIRECTED BLANCO Administration Sodium Chloride 50 ml 01/27/23 05:45 01/27/23 05:38 Normal Saline - Diluent 50 Ml Vial IJ 50 ml .FOR DI USE BLANCO Administration PFSH Active Problems Active Problems: Problem Status Onset Code Acute appendicitis with localized peritonitis K35.30 Hyperlipidemia E78.5 Hypertension I10 Surgical History Surgical History (Updated 01/27/23 @ 08:03 by Harika Diaz MD) No pertinent past surgical history Tobacco Smoking/Tobacco Use Status: Never Passive smoking exposure: Yes Second hand exposure: Yes Alcohol Alcohol Intake: current Alcohol intake frequency: a few times a week Alcohol type: beer Substance Use Substance use: Never Substance use type: does not use Vital Signs and Lab Results Vital Signs Most Recent Vital Signs in EMR: Most Recent Vital Signs Temp Pulse Resp BP Pulse Ox 37.1 C 71 25 H 135/76 97 01/27/23 04:14 01/27/23 06:31 01/27/23 06:40 01/27/23 06:31 01/27/23 06:40 Lab Results 01/27/23 04:15 01/27/23 04:15 Blood Type / Crossmatch: No Data to Display Complete Blood Count: White Blood Count 15.86 10^3/uL (4.4-10.8) H 01/27/23 04:15 Red Blood Count 5.37 10^6/uL (4.36-5.78) 01/27/23 04:15 Hemoglobin 14.7 g/dL (13.5-17.5) 01/27/23 04:15 Hematocrit 44.1 % (40.0-50.0) 01/27/23 04:15 Platelet Count 335 10^3/uL (130-400) 01/27/23 04:15 Venous Blood Lactate 0.9 mmol/L (0.6-1.4) 01/27/23 04:15 Complete Metabolic Panel: Sodium 135 mmol/L (136-145) L 01/27/23 04:15 Potassium 3.3 mmol/L (3.5-5.1) L 01/27/23 04:15 Chloride 96 mmol/L (98-107) L 01/27/23 04:15 Carbon Dioxide 32.0 mmol/L (21.0-32.0) 01/27/23 04:15 BUN 18 mg/dL (7-18) 01/27/23 04:15 Creatinine 1.2 mg/dL (0.70-1.30) 01/27/23 04:15 Est GFR (CKD-EPI 2020) 73.22 (mL/min/1.73m2) 01/27/23 04:15 Magnesium 2.3 mg/dL (1.8-2.4) 01/27/23 04:15 Calcium 9.1 mg/dL (8.5-10.1) 01/27/23 04:15 Albumin 3.3 g/dL (3.4-5.0) L 01/27/23 04:15 Glucose 121 mg/dL (74-106) H 01/27/23 04:15 Liver Function Panel: Alanine Aminotransferase (ALT/SGPT) 73 U/L (16-63) H 01/27/23 0 4:15 Aspartate Amino Transf (AST/SGOT) 52 U/L (15-37) H 01/27/23 04: 15 Coagulation Panel: No Data to Display Cardiac Panel: Troponin I < 50 ng/L (<or=60) 01/27/23 Arterial Blood Gas: No Data to Display Venous Blood Gas: No Data to Display Pancreas Panel: Lipase 53 U/L (16-77) 01/27/23 04:15 Thyroid Panel: 2 No Data to Display Infectious Disease: No Data to Display Blood Cultures: No Data to Display Toxicology Panel: No Data to Display Imaging and Studies Imaging and Studies Study information below may be from another EMR and interpreted by another provider. Please see original notes in EMR for more complete details. EKG Summary: EKG PATIENT NAME: Ramin Yadav AUNIT #: [id number] ORDERING PROVIDER: Quan Monahan M.D. PRIMARY CARE PROVIDER:MOY ELMORE NP DATE/TIME OF SERVICE: 01/27/23 0423 : 1970PERFORMING LOCATION: ER APPROVED REPORT Exam: Resting ECG Reason for Exam: abd pain Patient Location: E HR:77 bpm ECG Measurements Heart Rate 77 AXIS MA 154 P 12 QRSd 134 QRS 4 QT 412 T-25 QTc 468 Conclusion Sinus rhythm...normal P axis, V-rate 60- 99 Nonspecific intraventricular conduction delay...QRSd >115mS, not LBBB/RBBB Anesthesia Assessment and Plan Anesthesia History Personal History: No History of Anesthesia Complications Family History: No Family History of Anesthesia Complications Exercise Tolerance Exercise Tolerance: Metabolic Equivalents>4 Pertinent Negatives Pertinent Negatives: No Symptoms of GERD, No Major Pulmonary Symptoms or Complaints and No History of CVA/TIA Cardiac & Pulmonary Exam Cardiac Exam: Normal S1/S2 Heart Sounds Pulmonary Exam: Clear Bilateral Breath Sounds Implantable Cardiac Device Does patient have a Pacemaker or an ICD?: No Airway Exam Known Difficult Airway: No Mallampati Class: 2 Mouth Opening: Normal (> 3cm) Thyromental Distance: Greater than 3 cm Neck Range of Motion: Full ROM Neck Circumference: Normal Teeth Condition: Normal Dentition ASA Classification ASA Score: ASA 2 Emergency Case?: Yes NPO Status NPO Status: NPO Clears >2 hours, Solids >8 hours Anesthesia Plan Resuscitation Status: Full Code Anesthesia Technique: General Anesthesia Airway Planned: Endotracheal Tube Monitors Used: Standard Monitors
--- NOTE | 2023-01-27 07:59 | W.PM.HP.N ---
Date of service: 01/27/23 Time of Service: 07:59 Assessment and Plan Assessment and plan (1) Acute appendicitis with localized peritonitis: Status: Acute Assessment and plan: Mr. Yadav is a pleasant 53-year-old gentleman who comes in to the emergency department for a 3-day history of abdominal pain. The pain briefly got better around Sunday evening but then started to get worse again. He has had some low-grade fevers as well. Exam at bedside as well as CT scan and labs are all consistent with acute appendicitis with rupture. I discussed the procedure with the patient and his . We discussed the increased risk of abscess formation due to the fact that his appendix is already ruptured. We discussed possibly leaving a drain. We discussed the possibility of having to do the procedure open if there is too much scar tissue in the area. We reviewed the risks, benefits and complications of laparoscopic appendectomy. Both the patient and his seem to have a good understanding of the complications and risks and wished to proceed. Risks, benefits and complications have been reviewed. Complications include but are not limited to bleeding, infection, injury to adjacent bowel, abscess formation, staple line leak, inability to do the procedure laparoscopically and adverse reaction to the medications. Questions were entertained and answered to their satisfaction and they wished to proceed. No guarantees were given or implied. Anesthesia: general (without airway) Previous surgical intolerances: No Previous surgical complications: No Pulmonary risk factors: none Planned procedure: NO- urgent Sleep apnea risks: No Can climb one flight of stairs (12-13 steps) in less than 30 seconds without stopping and without symptoms: Yes The surgery proposed for this patient is: low risk Active cardiac conditions: none Active risk factors: none ASA (acetylsalicylic acid): not used Beta blockers: not used Proceed with laparoscopic appendectomy possible open. I also discussed with the patient and his 's postoperative care and restrictions. I would like him to stay at least 24 hours for IV antibiotics. We discussed no lifting more than 5 to 10 pounds for the next 2 weeks. I will go over all of these precautions again once he is discharged. History of Present Illness Consults Consult date: 01/27/23 Requesting physician: Harika Diaz Narrative: Mr. Yadav is a pleasant 53-year-old gentleman who started to have abdominal pain on Sunday. By Sunday he was having fevers but did not want to come into the hospital. He states that Sunday night the pain suddenly started to feel a little better until about when it started to slowly get worse. By Sunday evening he was having fevers chills and his pain was worse so his made him come into the emergency department. Work-up in the emergency department showed a white count of just over 15,000. CT scan of the abdomen and pelvis was done which I reviewed myself. It shows inflammation around the appendix with signs of rupture. His vitals have been stable. He is otherwise a fairly healthy 53-year-old. He does have high blood pressure which is treated with amlodipine 5 mg at night as well as lisinopril hydrochlorothiazide at nighttime. He last took his blood pressure medications last night at around 9:00. His last sip of water was around 930 last night. Review of Systems Constitutional Constitutional: Reports fever(s) and Reports poor appetite Eyes Eyes: Denies change in vision ENT Ears, Nose, Mouth, and Throat: Denies dysphagia Cardiovascular Cardiovascular: Denies chest pain, Denies chest pain at rest, Denies irregular heart rhythm, Denies palpitations, Denies dyspnea and Denies dyspnea on exertion Respiratory Respiratory: Denies cough, Denies dyspnea and Denies dyspnea on exertion Gastrointestinal Gastrointestinal: Reports as per HPI, Denies dysphagia, Denies dyspepsia and Denies heartburn Genitourinary Genitourinary: Reports system reviewed and no additional complaints, except as documented Musculoskeletal Musculoskeletal: Reports system reviewed and no additional complaints, except as documented Integumentary/Breasts Skin/Breast: Reports system reviewed and no additional complaints, except as documented Neurologic Neurologic: Reports system reviewed and no additional complaints, except as documented Psychiatric Psychiatric: Reports system reviewed and no additional complaints, except as documented Endocrine Endocrine: Reports system reviewed and no additional complaints, except as documented and Denies palpitations Hematologic/Lymphatic Hematologic/Lymphatic: Reports system reviewed and no additional complaints, except as documented PFSH All Active Problems (Updated 01/27/23 @ 06:19 by Quan Monahan MD) Acute appendicitis with localized peritonitis (Acute) Hyperlipidemia (Acute) Hypertension (Chronic) Surgical History (Updated 01/27/23 @ 08:03 by Harika Diaz MD) No pertinent past surgical history Family History Sister , 42 Cancer Social History Smoking/Tobacco Use Status: Never Second Hand Exposure: Yes Smoking risk assessment performed?: Yes Alcohol Intake: current Alcohol Intake frequency: a few times a week Alcohol type: beer Drug use: Never Substance use type: does not use Household members: spouse current occupation: contractor Pets and animals: Yes Pets and animals: cat(s), dog(s) and horse(s) Sexually active: Yes Do you think of yourself as: straight/heterosexual What type of physical activity do you participate in: walking Do you feel safe at home: Yes Do you feel safe in your relationship?: Yes Meds Allergies and Home Medications Allergies Allergy/AdvReac Type Severity Reaction Status Date / Time No Known Allergies Allergy Verified 01/27/23 04:19 Home Medications Medication Instructions Recorded Confirmed Type acetaminophen 325 mg tablet 325 mg PO ONCE PRN 09/27/20 01/27/23 History (Tylenol) ibuprofen 200 mg capsule 200 mg PO Q6H PRN 09/27/20 01/27/23 History amlodipine 5 mg tablet 5 mg PO DAILY #90 tabs 01/11/23 01/27/23 Rx amlodipine 5 mg tablet 5 mg PO DAILY #90 tabs 01/11/23 01/27/23 Rx lisinopril 20 1 tab PO DAILY #90 tabs 01/11/23 01/27/23 Rx mg-hydrochlorothiazide 25 mg tablet Exam Const General: cooperative, comfortable and no acute distress Nutritional Appearance: average body habitus Orientation: alert and oriented x3 HENMT Head: normocephalic and atraumatic Resp Effort & Inspection: normal respiratory effort Auscultation: clear to auscultation bilaterally Cardio Rate: regular rate Rhythm: regular rhythm GI Inspection: normal to inspection Palpation: soft, no hepatosplenomegaly and tender in the RLQ (voluntary guarding); with no rebound tenderness Auscultation: normoactive bowel sounds Results Imaging Abdomen CT scan report/results: report reviewed and image reviewed CT scan - pelvis: report reviewed and image reviewed Labs 01/27/23 04:15 01/27/23 04:15 Labs: Laboratory Results - last 24 hr 01/27/23 01/27/23 01/27/23 04:15 04:15 04:15 WBC RBC Hgb Hct MCV MCH MCHC RDW Plt Count MPV Immature Gran % Neutrophils % Lymphocytes % Monocytes % Eosinophils % Basophils % Nucleated RBC % Absolute Neutrophils Absolute Lymphocytes Absolute Monocytes Absolute Eosinophils Absolute Basophils RBC Morphology VBG Lactate 0.9 Sodium 135 L Potassium 3.3 L Chloride 96 L Carbon Dioxide 32.0 Anion Gap 7.0 BUN 18 Creatinine 1.2 Est GFR (CKD-EPI 2020) 73.22 Glucose 121 H Calcium 9.1 Magnesium 2.3 Total Bilirubin 0.7 AST 52 H ALT 73 H Alkaline Phosphatase 102 Troponin I < 50 Total Protein 8.0 Albumin 3.3 L Lipase 53 Urine Color Yellow Urine Clarity Clear Urine pH 6.0 Ur Specific [place] 1.020 Urine Protein 30 H Urine Ketones Trace H Urine Blood Small H Urine Nitrite Negative Urine Bilirubin Small H Urine Urobilinogen 1.0 H Ur Leukocyte Esterase Negative Urine RBC 3-5 H Urine WBC Negative Ur Epithelial Cells Rare Urine Crystals Negative Urine Bacteria Rare Urine Casts Negative Urine Mucus Moderate Ur Culture Indicated? No Urine Glucose Negative 01/27/23 04:15 WBC 15.86 H RBC 5.37 Hgb 14.7 Hct 44.1 MCV 82 MCH 27.4 MCHC 33.3 RDW 12.8 Plt Count 335 MPV 10.1 Immature Gran % 0.3 Neutrophils % 82.6 Lymphocytes % 6.4 Monocytes % 10.2 Eosinophils % 0.2 Basophils % 0.3 Nucleated RBC % 0.0 Absolute Neutrophils 13.10 H Absolute Lymphocytes 1.02 L Absolute Monocytes 1.62 H Absolute Eosinophils 0.03 Absolute Basophils 0.05 RBC Morphology Normal VBG Lactate Sodium Potassium Chloride Carbon Dioxide Anion Gap BUN Creatinine Est GFR (CKD-EPI 2020) Glucose Calcium Magnesium Total Bilirubin AST ALT Alkaline Phosphatase Troponin I Total Protein Albumin Lipase Urine Color Urine Clarity Urine pH Ur Specific [place] Urine Protein Urine Ketones Urine Blood Urine Nitrite Urine Bilirubin Urine Urobilinogen Ur Leukocyte Esterase Urine RBC Urine WBC Ur Epithelial Cells Urine Crystals Urine Bacteria Urine Casts Urine Mucus Ur Culture Indicated? Urine Glucose Last Vital Signs Temp 98.7 F 01/27/23 04:14 Pulse 71 01/27/23 06:31 Resp 25 H 01/27/23 06:40 BP 135/76 01/27/23 06:31 Pulse Ox 97 01/27/23 06:40 Time Spent Time spent with Patient: 40-54 minutes Time was spent: preparing to see the patient(eg.review tests), obtaining and/or reviewing separately otained hiistory, ordering medications,tests, procedures, indepentently interpreting results and counseling the patient
[2023-01-27] MEDS: Lactated Ringers 1,000 ML 125 ML IV ×2 (08:17→12:26)
[2023-01-27] MEDS: PIPERACILLIN/TAZO 3.375 GM in Normal Saline 50 ML IVPB ×3 (11:13→21:31)
--- NOTE | 2023-01-27 12:07 | APP_PTH ---
PATIENT: Ramin Yadav LOC: [id number]#:[id number] AGE/SX: 53/M ROOM: 215 RE01/27/[address]: Harika Diaz MD : 1970 BED: A DIS: 02/02/2023 SPEC #: [id number] RECD: 02/01/23 11:56 STATUS: DENI REQ #: [id number] ARYAN: 01/27/23 12:[address]: Harika Diaz DEPT: Surgical Specimen RECD BY: Gloria Romero ENTERED: 02/01/23 11:57 SP TYPE: Appendix OTHR DR: Edil Key, SANDRA Tissues: 1 - APPENDIX NOT INCIDENTAL Procedures: GROSS AND MICRO LEVEL 3 Comments: [id number]
--- NOTE | 2023-01-27 12:57 | W.PM.OP ---
Date of service: 01/27/23 Time of Service: 12:57 Operative Note Operative Note DATE OF PROCEDURE: 01/27/23 PRE-OP DIAGNOSIS: acute appendicitis with perforation POST-OP DIAGNOSIS: same PROCEDURE: Attempted Laparoscopic appendectomy, converted to open SURGEON: Harika Diaz Refer to Anesthesia Record ESTIMATED BLOOD LOSS: 100 PATHOLOGY: other (appendix) COMPLICATIONS: None Patient was transported to: PACU Patient's condition: stable Indications: Mr. Yadav is a pleasant 53 year old male who came to the ER with a hx of 3 days of abdominal pain which initially started sunday, improved slightly on sunday and then worsened again. He had some low grade fevers. Work up in the ER showed a leukocytosis and CT scan showed appendicitis with perforation. Risks, benefits and complications were reviewed. Complications include but are not limited to bleeding, infection, injury to adjacent organs, abscess formation, leak from the appendiceal stump, wound dehiscence, hernia formation. Risk is increased for wound dehisence, infection, abscess formation and hernia due to intra-abdominal infection and emergent nature of surgery. Findings: Necrotic appendix with stool adjacent to it. Appendix was tucked under the terminal ileum and cecum. Procedure Description: After informed consent was obtained the patient was taken to the operating room placed in the supine position, SCDs were applied as well as monitors. A timeout was done. The patient was then placed under general anesthesia and intubated without any difficulty. Next a Morin catheter was placed in a standard surgical fashion. At this point the abdomen was prepped and draped in a sterile surgical fashion with chlorhexidine. A second timeout was done and the patient's name, date of , operation to be performed, DVT prophylaxis, antibiotic given, and fire risk was assessed. 0.25% Bupivocaine with epi was injected into the dermis just below the umbilicus. A small 5 mm incision was made with an 11 blade. The subcutaneous tissue was dissected with a hemostat. The skin was grasped with penetrating towel clamps on either side of the incision and then using a Visiport a 5 mm port was placed under direct visualization into the abdomen. The abdomen was insufflated. Local anesthetic was then injected just above the pubic symphysis just to the left of midline. A small 5 mm incision was made with an 11 blade and another 5 mm port was placed under direct visualization into the abdomen. The local anesthetic was then injected in the left lower quadrant area and a 12 mm incision was made with an 11 blade. A 12 mm port was then placed under direct visualization. The patient's bed was then turned to the left and head down allowing me to sweep of the small bowel out of the right lower quadrant. The cecum was gently grasped. The terminal ileum was attached to the cecum and the peritoneum along the gutter. The small intestine was gently dissected away from the peritoneum using a laparoscopic atraumatic bowel grasper. Once the terminal ileum was dissected towards the midline I started to look for the appendix. Stool was noted along the right gutter. I could not identify the appendix due to the severity of the inflammation. I opted to convert to open to avoid injury to the small and large intestine. The camera was removed, the insufflation was stopped and all 3 ports were removed. Next the local was injected along the midline from the umbilical incision to the suprapubic incision. An incision was made with a 15 blade. Disseection was done through the subcutaneous tissue with cautery. I was able to place my finger through the port opening just below the umbilicus. Using my finger as a guide the fascia was opened with cautery. A lap was placed into the abdomen to keep the small intestine in the LLQ. The abdominal wall on the right was retracted. I was able to feel for the cecum. I was then able to visualize the cecum and follow the tinea down to the neck of the appendix. There was some fluidnext to the cecum. Aerobic and anaerobic culture were done of the fluid. The tip of the appendix was then identified tucked under the cecum with some tight adhesions. I was able to break the adhesions bluntly and deliver the appendix to the midline. The tip was noted to have an opening and there was necrotic tissue long term up the appendix. A vicryl loop was placed around the neck of the appendix and singed down. The suture was cut. The appendix was cut just distal to the suture. The appendix was removed from the operating field and placed into formalin. The cecum was inspected. NO injuries were noted to the cecum. The appendiceal stump was inspected and there was no bleeding and no leaking of enteric content. The terminal ileum was then inspected and followed proximally for about 10 cm. No injuries were noted. Next the abdomen was irrigated with 1.5 Liters of warm NS. The fluid was suctioned out. The appendiceal stump was inspected once more. There was no active bleeding. A drain was placed along the right gutted and brought out through the LLQ port site. The drain was secured with 2-0 proline. 30 cc of local was then injected in the pre=preitoneal space along the entire incision. The fascia was grasped with cockers and closed with 2-0 proline running suture. The subcutaneous tissue was re-approximated using 3-0 vicryl interrupted stitches. The dermis was closed with galileo. Instrument, needle and sponge counts were correct prior to closure of the fascia. The skin was cleaned and dried. A 15 cm XAVIER dressing was applied over the midline incision. There was good suction obtained. 2x2 were placed around the drain and secured with tegaderm. A second instrument, sponge and needle count was correct at the end of the case. The morin catheter was removed. The patient was workn up, extubated and taken to PACU in stable condition. There were no immediate complications.
[2023-01-27] MEDS: Lactated Ringers 1,000 ML 75 ML IV (13:10)
--- NOTE | 2023-01-27 13:21 | W.ANESPOSTOP ---
Postoperative Evaluation Date, Time and Location Date Performed: 01/27/23 Time Performed: 13:21 Patient Location: PACU Vital Signs Most Recent Imported Vital Signs: Most Recent Vital Signs Temp Pulse Resp BP Pulse Ox 36.5 C 64 18 120/73 93 01/27/23 13:07 01/27/23 13:07 01/27/23 13:07 01/27/23 13:07 01/27/23 13:07 Pain Score Most Recent Pain Score: Most Recent Pain Score Pain Level 1 01/27/23 13:07 Assessment Mental Status: Awake (Alert & Oriented to Patient Baseline) Airway and Respiratory Function: Patent airway with normal (patient baseline) respiratory exam Cardiovascular Function: Hemodynamically Stable Hydration Status: Adequately Hydrated Nausea & Vomiting: No Nausea or Vomiting Pain: Pain is tolerable per patient Peripheral Nerve Block: Patient did not receive a nerve block
[2023-01-27] MEDS: traMADol 50 MG TAB PO ×2 (13:51→23:45)
[2023-01-27] MEDS: Pantoprazole 40 MG VIAL IVP (13:52)
[2023-01-27] MEDS: Normal Saline Flush 10 ML SYR (13:52)
[2023-01-27] MEDS: MORPHine 2 MG/ML SYR IVP (14:37)
[2023-01-27] MEDS: Ketorolac 30 MG/ML VIAL IVP ×2 (17:12→23:44)
[2023-01-27] MEDS: Normal Saline Flush 10 ML SYR IVP (17:13)
[2023-01-27] MEDS: amLODIPine 5 MG TAB PO (21:30)
[2023-01-27] MEDS: hydroCHLOROthiazide 25 MG TAB PO (21:30)
[2023-01-27] MEDS: Lisinopril 20 MG TAB PO (21:31)
[2023-01-28] MEDS: PIPERACILLIN/TAZO 3.375 GM in Normal Saline 50 ML IVPB ×4 (04:02→21:07)
[2023-01-28 05:35] VITALS: BP 119/75; PULSE 77; RESP 18; TEMP 36.9; O2SAT 90
[2023-01-28 07:43] LABS: Abs Immature Grans 0.08 10^3/uL (0.0-0.06); Absolute Basophil Count 0.02 10^3/uL (0.0-0.2); Absolute Neutrophil Count 13.73 10^3/uL (1.2-6.7); Basophils % 0.1; HCT 40.2 % (40.0-50.0); HGB 13.4 g/dL (13.5-17.5); Immature Grans % 0.5; Lymphocytes % 4.4; MCH 27.5 pg (27.0-33.0); MCHC 33.3 % (32.0-36.0); MCV 83 fL (80-95); MPV 10.4 fL (8.0-11.0); Monocytes % 8.6; Neutrophils % 86.4; Platelet Count 311 10^3/uL (130-400); RBC 4.87 10^6/uL (4.36-5.78); RDW 13.1 % (11.8-14.1); RDW-SD 39.7 fL; WBC 15.89 10^3/uL (4.4-10.8)
[2023-01-28 07:51] LABS: Absolute Monocyte Count 1.37 10^3/uL (0.1-0.8)
[2023-01-28 07:52] LABS: Anion Gap 10.6 mmol/L (3-11); BUN 21 mg/dL (7-18); CO2 29.4 mmol/L (21.0-32.0); CREATININE 1.2 mg/dL (0.70-1.30); Calcium 8.9 mg/dL (8.5-10.1); Chloride 97 mmol/L (98-107); Estimated GFR 73.22 (mL/min/1.73m2); Glucose 137 mg/dL (74-106); Potassium 3.3 mmol/L (3.5-5.1); Sodium 137 mmol/L (136-145)
[2023-01-28] MEDS: Ondansetron 4 MG/2 ML VIAL IVP (08:09)
[2023-01-28] MEDS: Simethicone 80 MG CHEW PO ×3 (08:09→23:03)
[2023-01-28] MEDS: Normal Saline Flush 10 ML SYR IVP ×3 (08:15→15:48)
[2023-01-28] MEDS: Ketorolac 30 MG/ML VIAL IVP ×3 (08:15→21:07)
[2023-01-28 08:23] VITALS: BP 115/72; PULSE 89; RESP 18; TEMP 37.2; O2SAT 93
--- NOTE | 2023-01-28 08:30 | DI.RAD_ITS ---
Exam(s) XR ABDOMEN FLAT PLATE EXAM: 2D digital imaging was performed. CLINICAL HISTORY: distended abdomen post op. COMPARISON: No exams were available for comparison TECHNIQUE: Supine views of the abdomen performed. FINDINGS: BOWEL GAS PATTERN: There arm mildly dilated loops of small and large bowel present. This likely refl ects an ileus. Bowel obstruction cannot be entirely excluded. CALCIFICATIONS: No radiopaque calcifications. OSSEOUS STRUCTURES: Normal for age. OTHER FINDINGS: Surgical clips are seen in the midline consistent with recent surgery. IMPRESSION: 1. Multiple dilated loops of small and large bowel likely reflecting an ileus. Obstruction cannot be entirely excluded. Follow-up as clinically appropriate. 2. Surgical clips in the mid 9 consistent with recent surgery. DATA REPOSITORY: RADIATION DOSE DELIVERED:
--- NOTE | 2023-01-28 09:00 | INITIAL_ITS ---
Date of service: 01/28/23 Time of Service: 09:00 [facility] All Active Problems (Updated 08/20/24 @ 00:07 by ADAIR COREY) Abscess, intra-abdominal, postoperative (Acute) Leukocytosis (Acute) Febrile (Acute) Hyperlipidemia (Acute) Hypertension (Chronic) Surgical History Hx of appendectomy (~01/2023) Family History Sister , 42 Cancer Social History Smoking/Tobacco Use Status: Never Second Hand Exposure: Yes Smoking risk assessment performed?: Yes Alcohol Intake: current Alcohol Intake frequency: a few times a week Alcohol type: beer Drug use: Never Substance use type: does not use Household members: spouse current occupation: contractor Pets and animals: Yes Pets and animals: cat(s), dog(s) and horse(s) Sexually active: Yes Do you think of yourself as: straight/heterosexual What type of physical activity do you participate in: walking Do you feel safe at home: Yes Do you feel safe in your relationship?: Yes
--- NOTE | 2023-01-28 09:23 | DI.VRAD_ITS ---
PROCEDURE INFORMATION: Exam: XR Abdomen Exam date and time: 01/28/2023 8:48 AM Age: 53 years old Clinical indication: Other: Distended abdomen post op; Prior surgery; Surgery date: Post-operative (0-2 days); Surgery type: Acute appendicitis with perf TECHNIQUE: Imaging protocol: Radiologic exam of the abdomen. Views: Frontal supine view of the abdomen. 1 View. COMPARISON: CT ABDOMEN PELVIS W 01/27/2023 5:36 AM FINDINGS: Tubes, catheters and devices: Surgical clips in the midline consistent with recent surgery. . Gastrointestinal tract: Multiple loops of dilated bowel may represent obstruction or ileus.. Bones/joints: Unremarkable. IMPRESSION: 1. Multiple loops of dilated bowel may represent obstruction or ileus.. 2. Surgical clips in the midline consistent with recent surgery. . Dictated and Authenticated by: Serge Lay MD. Ordering:FLETCHER hSabazz MD
[2023-01-28] MEDS: Lactated Ringers 1,000 ML 75 ML IV (10:18)
[2023-01-28] MEDS: Enoxaparin 40 MG/0.4 ML SYR SC (10:18)
--- NOTE | 2023-01-28 10:43 | W.PM.PROGNOT ---
Date of Service Date of service: 01/28/23 Time of Service: 10:43 Assessment and Plan Assessment and plan (1) Acute appendicitis with localized peritonitis: Status: Acute Assessment and plan: POD #1 s/p open appendectomy for ruptured, necrotic appendix. Patient has developed a postoperative ileus. NO peritoneal signs on exam Will make NPO Discussed pathophysiology of ileus. Patient needs to walk May have ice chips, hard candy and chewing gum Will order ISP to avoid Pneumonia Continue with DVT prophilaxis with Lovenox. SCD's if not up and walking [id number] with GI prophilaxis with PPI Will await return of bowel funtion Repeat CBC and BMP in am Continue ABX If he starts to have fevers of >101.5 will get blood cultures I will sign out to Dr. Umanzor tomorrow morning (2) Ileus, postoperative: Status: Acute (3) Hypertension: Status: Chronic Qualifiers: Hypertension type: primary hypertension Qualified Code(s): I10 - Essential (primary) hypertension Subjective Subjective Interval history since last seen: Ramin is POD #1 s/p Open appendectomy for necrotic and ruptured appendix. He developed nausea and bloating at around 3 am this morning. He was having increased pain which subsided after getting some simethicone and getting up to walk. He has had no vomiting. He had a low grade temp at 9 pm last night. He did have some chills this morning when he had the increase in pain. Abdominal XRAY was done which showed some dilated loops of bowel. He is burping but has not passed any gas since very early this am.WBC count is stable. Exam Const General: cooperative, comfortable and no acute distress Orientation: alert and oriented x3 HENKY Head: normocephalic and atraumatic Resp Effort & Inspection: normal respiratory effort Auscultation: clear to auscultation bilaterally Cardio Rate: regular rate Rhythm: regular rhythm GI Inspection: distended Palpation: soft, no hepatosplenomegaly and tender (appropriately tender to palpation along his midline incision) Auscultation: absent bowel sounds Objective Last Vital Signs Temp 99.0 F 01/28/23 08:23 Pulse 89 01/28/23 08:23 Resp 18 01/28/23 08:23 BP 115/72 01/28/23 08:23 Pulse Ox 93 01/28/23 08:23 Laboratory Results - last 24 hr 01/28/23 01/28/23 07:14 07:14 WBC 15.89 H RBC 4.87 Hgb 13.4 L Hct 40.2 MCV 83 MCH 27.5 MCHC 33.3 RDW 13.1 Plt Count 311 MPV 10.4 Immature Gran % 0.5 Neutrophils % 86.4 Lymphocytes % 4.4 Monocytes % 8.6 Eosinophils % 0.0 Basophils % 0.1 Nucleated RBC % 0.0 Absolute Neutrophils 13.73 H Absolute Lymphocytes 0.70 L Absolute Monocytes 1.37 H Absolute Eosinophils 0.00 Absolute Basophils 0.02 Sodium 137 Potassium 3.3 L Chloride 97 L Carbon Dioxide 29.4 Anion Gap 10.6 BUN 21 H Creatinine 1.2 Est GFR (CKD-EPI 2020) 73.22 Glucose 137 H Calcium 8.9 Time Spent with Patient Time Spent with Patient: 25-34 minutes Time was spent: preparing to see the patient(eg.review tests), indepentently interpreting results and counseling the patient
[2023-01-28] MEDS: ACETAMINOPHEN 1,000 MG/100 ML BTL 400 MG IVPB (12:42)
[2023-01-28] MEDS: Pantoprazole 40 MG VIAL IVP (13:47)
[2023-01-28 21:05] VITALS: BP 129/79; PULSE 92; RESP 16; TEMP 37.6; O2SAT 90
[2023-01-28] MEDS: hydroCHLOROthiazide 25 MG TAB PO (21:06)
[2023-01-28] MEDS: Lisinopril 20 MG TAB PO (21:07)
[2023-01-28] MEDS: MORPHine 2 MG/ML SYR IVP (21:07)
[2023-01-28] MEDS: amLODIPine 5 MG TAB PO (21:07)
[2023-01-28] MEDS: Lactated Ringers 1,000 ML 125 ML IV (21:08)
[2023-01-29] MEDS: MORPHine 2 MG/ML SYR IVP ×3 (02:07→22:40)
[2023-01-29] MEDS: PIPERACILLIN/TAZO 3.375 GM in Normal Saline 50 ML IVPB ×4 (03:40→21:05)
[2023-01-29] MEDS: Lactated Ringers 1,000 ML 125 ML IV ×2 (04:31→20:33)
[2023-01-29] MEDS: ACETAMINOPHEN 1,000 MG/100 ML BTL 400 MG IVPB (06:37)
[2023-01-29 06:39] LABS: Abs Immature Grans 0.09 10^3/uL (0.0-0.06); Absolute Basophil Count 0.02 10^3/uL (0.0-0.2); Absolute Eosinophil Count 0.03 10^3/uL (0.0-0.7); Absolute Neutrophil Count 13.27 10^3/uL (1.2-6.7); Basophils % 0.1; Eosinophils % 0.2; HCT 39.2 % (40.0-50.0); HGB 12.9 g/dL (13.5-17.5); Immature Grans % 0.6; Lymphocytes % 3.7; MCH 27.2 pg (27.0-33.0); MCHC 32.9 % (32.0-36.0); MCV 83 fL (80-95); MPV 9.9 fL (8.0-11.0); Monocytes % 7.2; Neutrophils % 88.2; Platelet Count 340 10^3/uL (130-400); RBC 4.74 10^6/uL (4.36-5.78); RDW 13.3 % (11.8-14.1); WBC 15.05 10^3/uL (4.4-10.8)
[2023-01-29 06:44] LABS: Absolute Lymphocyte Count 0.56 10^3/uL (1.2-3.4); Absolute Monocyte Count 1.08 10^3/uL (0.1-0.8)
[2023-01-29 07:01] LABS: Anion Gap 7.9 mmol/L (3-11); BUN 27 mg/dL (7-18); CO2 31.1 mmol/L (21.0-32.0); CREATININE 1.1 mg/dL (0.70-1.30); Chloride 97 mmol/L (98-107); Estimated GFR 81.28 (mL/min/1.73m2); Glucose 131 mg/dL (74-106); Magnesium 2.4 mg/dL (1.8-2.4); Potassium 3.6 mmol/L (3.5-5.1); Sodium 136 mmol/L (136-145)
[2023-01-29 07:20] VITALS: BP 135/88; PULSE 87; RESP 18; TEMP 36.6; O2SAT 93
[2023-01-29] MEDS: Enoxaparin 40 MG/0.4 ML SYR SC (08:00)
[2023-01-29 09:00] VITALS: O2SAT 98
--- NOTE | 2023-01-29 09:58 | W.PM.PROGNOT ---
Date of Service Date of service: 01/29/23 Time of Service: 09:58 Assessment and Plan Assessment and plan (1) Ileus, postoperative: Status: Acute Assessment and plan: Although his white blood cell count is technically down, overall it seems to have plateaued a bit. He did have 1 single low-grade fever overnight. I will keep him n.p.o. today, and reassess his white blood cell count tomorrow. If he continues to have signs of ongoing ileus, then we will consider repeat CAT scan to rule out deep surgical space abscess. Subjective Subjective Interval history since last seen: Murali tried to some clear liquids yesterday, and had near immediate onset of nausea and a single episode of vomiting. He felt fine after that. He does not have much appetite. He has not had a bowel movement yesterday, but he is passing some flatus. He is up walking around a bit this morning. Exam GI Other: His abdomen is quite distended. He is not very tender. His bowel sounds are quite quiet. Surgical drain is serous this morning. Volume yesterday was about 130 mL. Objective Last Vital Signs Temp 97.9 F 01/29/23 07:20 Pulse 87 01/29/23 07:20 Resp 18 01/29/23 07:20 BP 135/88 01/29/23 07:20 Pulse Ox 98 01/29/23 09:00 Laboratory Results - last 24 hr 01/29/23 01/29/23 01/29/23 06:25 06:25 06:25 WBC 15.05 H RBC 4.74 Hgb 12.9 L Hct 39.2 L MCV 83 MCH 27.2 MCHC 32.9 RDW 13.3 Plt Count 340 MPV 9.9 Immature Gran % 0.6 Neutrophils % 88.2 Lymphocytes % 3.7 Monocytes % 7.2 Eosinophils % 0.2 Basophils % 0.1 Nucleated RBC % 0.0 Absolute Neutrophils 13.27 H Absolute Lymphocytes 0.56 L Absolute Monocytes 1.08 H Absolute Eosinophils 0.03 Absolute Basophils 0.02 Sodium 136 Potassium 3.6 Chloride 97 L Carbon Dioxide 31.1 Anion Gap 7.9 BUN 27 H Creatinine 1.1 Est GFR (CKD-EPI 2020) 81.28 Glucose 131 H Calcium 9.0 Magnesium 2.4 Time Spent with Patient Time Spent with Patient: 25-34 minutes Time was spent: preparing to see the patient(eg.review tests), indepentently interpreting results and counseling the patient
[2023-01-29] MEDS: Ketorolac 30 MG/ML VIAL IVP (11:04)
[2023-01-29] MEDS: Simethicone 80 MG CHEW PO ×2 (14:43→22:40)
[2023-01-29] MEDS: Pantoprazole 40 MG VIAL IVP (14:43)
[2023-01-29 15:10] VITALS: BP 153/104; PULSE 90; RESP 18; TEMP 36.9; O2SAT 93
[2023-01-29] MEDS: Melatonin 3 MG TAB PO (18:11)
--- NOTE | 2023-01-29 20:47 | PDOC.CMPRO ---
Date of service: 01/29/23 Time of Service: 20:47 Care Management Progress Note Progress Note Text Progress Note Text: S/O:Murali was seen walking in the halls with his several times today. He was sitting up in a chair visiting with family when CM met with him. He was pleasant and agreeable to conversation. Murali's abdomen was visibly distended and he was rubbing it stating that he had terrible gas. A CT scan done yesterday revealed that he may have an obstruction or ileus. Murali had a liquid diet yesterday which he did not tolerate well. He is again NPO. If symptoms do not resolve overnight it is possible he will have another CT tomorrow to rule out an intra-abdominal process. A: Murali is a 53 year old man admitted on 01/27/23 with a ruptured appendix P:Anticipate Murali will be discharged home with no new services. He will follow up with his surgeon and plan of care as prescribed and transport with family. CM will follow and support discharge planning needs.
[2023-01-29 21:02] VITALS: BP 149/93; PULSE 88; RESP 18; TEMP 37.7; O2SAT 94
[2023-01-29] MEDS: amLODIPine 5 MG TAB PO (21:05)
[2023-01-29] MEDS: hydroCHLOROthiazide 25 MG TAB PO (21:05)
[2023-01-29] MEDS: Lisinopril 20 MG TAB PO (21:05)
[2023-01-30] MEDS: PIPERACILLIN/TAZO 3.375 GM in Normal Saline 50 ML IVPB (03:08)
[2023-01-30] MEDS: Simethicone 80 MG CHEW PO ×2 (04:12→16:45)
[2023-01-30] MEDS: Lactated Ringers 1,000 ML 125 ML IV (04:12)
[2023-01-30 07:15] VITALS: BP 158/102; PULSE 89; RESP 18; TEMP 37.1; O2SAT 94
[2023-01-30 07:47] LABS: HCT 39.3 % (40.0-50.0); HGB 13.2 g/dL (13.5-17.5); MCH 27.5 pg (27.0-33.0); MCHC 33.6 % (32.0-36.0); MCV 82 fL (80-95); MPV 9.8 fL (8.0-11.0); Platelet Count 394 10^3/uL (130-400); RDW 13.3 % (11.8-14.1); RDW-SD 40.2 fL
[2023-01-30] MEDS: Amoxicillin 875/Clav. 125 TAB PO ×2 (08:28→21:27)
[2023-01-30] MEDS: Simethicone 80 MG CHEW 40 MG PO (08:28)
[2023-01-30] MEDS: Enoxaparin 40 MG/0.4 ML SYR SC (08:28)
--- NOTE | 2023-01-30 10:51 | W.PM.PROGNOT ---
Date of Service Date of service: 01/30/23 Time of Service: 10:51 Assessment and Plan Assessment and plan (1) Ileus, postoperative: Status: Acute Assessment and plan: We will try a little bit of sips of clears today. His white blood cell count is reassuring, and overall I am glad that he starting to have some normal bowel function. Hopefully, the ileus is starting to improve. Subjective Subjective Interval history since last seen: Ramin says he feels a little better this morning. He had 2 small bowel movements yesterday, continued to pass flatus, and another bowel movement today. He denies nausea, but he still does not have much of an appetite. Exam GI Other: I removed the vincent dressing today. The incision is clean and there is no erythema. THOR drain is a little more serous. He is still quite distended, but may be a little bit softer today. Objective Last Vital Signs Temp 98.8 F 01/30/23 07:15 Pulse 89 01/30/23 07:15 Resp 18 01/30/23 07:15 BP 158/102 H 01/30/23 07:15 Pulse Ox 94 01/30/23 07:15 Laboratory Results - last 24 hr 01/30/23 07:24 WBC 12.60 H RBC 4.80 Hgb 13.2 L Hct 39.3 L MCV 82 MCH 27.5 MCHC 33.6 RDW 13.3 Plt Count 394 MPV 9.8 Time Spent with Patient Time Spent with Patient: 25-34 minutes Time was spent: preparing to see the patient(eg.review tests) and counseling the patient
[2023-01-30] MEDS: ACETAMINOPHEN 1,000 MG/100 ML BTL 100 MG IVPB (11:47)
--- NOTE | 2023-01-30 14:13 | CHAPLAIN ---
Murali told me about his appendix bursting three days ago and he had surgery. He is still uncomfortable. His is visiting with him. HE aid he got some sleep last night for the first time.
[2023-01-30] MEDS: Pantoprazole 40 MG VIAL IVP (15:08)
[2023-01-30] MEDS: Normal Saline Flush 10 ML SYR IVP (15:09)
[2023-01-30 15:17] VITALS: BP 164/103; PULSE 83; TEMP 37; O2SAT 96
[2023-01-30] MEDS: MORPHine 2 MG/ML SYR IVP ×2 (18:44→21:12)
[2023-01-30] MEDS: Ketorolac 30 MG/ML VIAL IVP (21:12)
[2023-01-30] MEDS: hydroCHLOROthiazide 25 MG TAB PO (21:27)
[2023-01-30] MEDS: amLODIPine 5 MG TAB PO (21:27)
[2023-01-30] MEDS: Lisinopril 20 MG TAB PO (21:28)
[2023-01-30 21:33] VITALS: BP 158/110; PULSE 82; RESP 16; TEMP 36.6; O2SAT 95
--- NOTE | 2023-01-30 23:30 | DI.RAD_ITS ---
Exam(s) XR PORTABLE CHEST AP POST LINE EXAM: XR PORTABLE CHEST AP POST LINE CLINICAL HISTORY: new gastric tube TECHNIQUE: 2D digital imaging was performed. COMPARISON: CR,XR XR ABDOMEN FLAT PLATE from 01/28/2023 FINDINGS: Exam extremely limited due to lack of pulmonary inflation. Nasogastric tube projects in the stomach . No free air visible. LUNGS: Expiratory changes. Bibasilar atelectasis. HEART: Normal size. AORTA: Normal diameter. BONES: Unremarkable for age. Soft tissues: Dilated loops of small bowel partially visualized. IMPRESSION: Nasogastric tube projects in the stomach. Bibasilar atelectasis. DATA REPOSITORY: RADIATION DOSE DELIVERED:
[2023-01-30] MEDS: Omnipaque 350 MG/ML 50 ML BTL PO (23:39)
--- NOTE | 2023-01-31 | DI.CT_ITS ---
Exam(s) CT ABDOMEN PELVIS W EXAM: CT ABDOMEN PELVIS W CLINICAL HISTORY: ABD DISTENTION. TECHNIQUE: Imaging Protocol: Axial computed tomography images with coronal and sagittal reformatted images were created and reviewed CONTRAST MATERIAL: Intravenous: Omnipaque 350 Contrast volume:100 ml Oral: yes / COMPARISON: FINDINGS: ABDOMEN: Lung Bases: Basilar atelectasis. Liver: Mild fat exceed ptosis. No measurable mass. Gallbladder and biliary tract: No radiodense calculus or dilation. Pancreas: Normal density, no abnormal calcifications or inflammatory process. Spleen: Normal. Kidneys: Normal size, contour and axis. No radiodense stones or obstructive uropathy. No suspicious m asses seen. Adrenal glands: No masses seen. Abdominal Aorta: Abdominal portion non-dilated. Soft tissues: Mild subcutaneous edema. Midline skin galileo in the lower anterior abdominal wall. PELVIS: Bladder: Small amount of air, presumably related to recent catheterization. No gross wall thickening . No calculi.No focal mass. Bowel: Nasogastric tube in stomach. Significant distention of loops of proximal through distal small bowel. Distal loops of small bowel relatively decompressed. Colon is decompressed. Some stranding in right lower quadrant. Patient is status post appendectomy. Peritoneal cavity: There are few small loculated right lower quadrant fluid collections. There are s cattered bubbles of free air. This is presumably postsurgical. A peritoneal drainage catheter is pr esent. The terminates in the right upper quadrant. Bones: Unremarkable for age. Reproductive organs: Within normal limits. Lymph nodes: Unremarkable. Impression: Status post appendectomy. Peritoneal drainage catheter in place. The stranding around loops of dist al ileum with dilatation of loops proximal to this level, likely postoperative ileus. Small right l ower quadrant fluid collections without definite abscess. Small amount of residual free air. RADIATION DOSE DELIVERED: 1,574.62mGy.cm Total DLP DATA REPOSITORY: All CT scans at this facility are submitted to the National Radiology Data Registry (NRDR) Dose Index Registry (DIR) with the [employer] (A[employer]). RADIATION OPTIMIZATION: All CT scans at this facility use at least one of these dose optimization te chniques: automated exposure control; mA and/or kV adjustment per patient size (includes targeted exa ms where dose is matched to clinical indication); or iterative reconstruction.
--- NOTE | 2023-01-31 00:06 | DI.VRAD_ITS ---
PROCEDURE INFORMATION: Exam: XR Chest Exam date and time: 01/30/2023 11:50 PM Age: 53 years old Clinical indication: Device placement; Ng tube; Prior surgery; Surgery date: 3-7 days post-operative; Surgery type: Appendectomy TECHNIQUE: Imaging protocol: Radiologic exam of the chest. Views: 1 view. COMPARISON: CR XR ABDOMEN FLAT PLATE 01/28/2023 8:48 AM FINDINGS: Tubes, catheters and devices: Esophagogastric tube is in good position with the distal end coiled in the stomach. Lungs: Moderate bibasilar atelectasis. Lungs are otherwise clear. Pleural spaces: Unremarkable. No pleural effusion. No pneumothorax. Heart/Mediastinum: Unremarkable. No cardiomegaly. Bones/joints: Unremarkable. IMPRESSION: Esophagogastric tube in good position Dictated and Authenticated by: Flavio Ignacio MD. Ordering:KIET Santiago MD
[2023-01-31] MEDS: Omnipaque 350 MG/ML 100 ML BTL IJ (01:43)
[2023-01-31] MEDS: Normal Saline Flush 10 ML SYR IVP ×2 (01:46→02:00)
--- NOTE | 2023-01-31 02:34 | DI.VRAD_ITS ---
PROCEDURE INFORMATION: Exam: CT Abdomen And Pelvis With Contrast Exam date and time: 01/31/2023 2:10 AM Age: 53 years old Clinical indication: Abdominal pain; Other: Distention; Prior surgery; Surgery date: 3-7 days post-operative; Surgery type: Appendectomy 01/27; Patient HX: HX of appendicitis with perf TECHNIQUE: Imaging protocol: Computed tomography of the abdomen and pelvis with contrast. Radiation optimization: All CT scans at this facility use at least one of these dose optimization techniques: automated exposure control; mA and/or kV adjustment per patient size (includes targeted exams where dose is matched to clinical indication); or iterative reconstruction. Contrast material: OMNIPAQUE 350; Contrast volume: 100 ml; Contrast route: INTRAVENOUS (IV); Other contrast: Oral, omnipaque 350, 50; COMPARISON: CT ABDOMEN PELVIS W 01/27/2023 5:36 AM FINDINGS: Tubes, catheters and devices: Nasogastric/orogastric catheter in-situ extending into the distal gastric antrum. Percutaneous surgical drain extending through the left lower quadrant abdominal wall, terminating in the right upper quadrant. No gross associated fluid collection. Liver: Normal appearing liver. Gallbladder and bile ducts: Gallbladder partially collapsed. No calcified gallstones seen. No biliary dilatation. Pancreas: Normal appearing pancreas. Spleen: Normal appearing spleen. Adrenal glands: Normal appearing adrenal glands. Kidneys and ureters: Small indeterminate hypoattenuating right renal lesion, incompletely characterized but statistically most likely a small renal cyst. Otherwise normal-appearing kidneys. No hydronephrosis. No obstructing ureteral stones. Stomach and bowel: Oral contrast in the stomach and proximal small bowel. Stomach largely decompressed. Moderate extensive small bowel distention with fluid and gas with tapered caliber transition to relatively decompressed distal bowel loops. Colon almost completely evacuated of formed fecal material. Small amount of gas in the colon. No evidence of diverticulitis or colitis. Appendix: Recent appendectomy. Hazy fat stranding throughout the right lower quadrant along with a small amount of fluid. At least a single small focus of extraluminal gas in the right lower quadrant. Intraperitoneal space: Small amount of fluid in the right lower quadrant. Small foci of free air in the upper abdomen, presumably postsurgical. Vasculature: Normal caliber abdominal aorta. Lymph nodes: No pathologically enlarged mesenteric, retroperitoneal, or pelvic sidewall lymph nodes. Urinary bladder: Small foci of gas in the urinary bladder, nonspecific but commonly seen in the setting of recent catheterization. Correlation with recent procedure history recommended. Reproductive: Normal-appearing prostate gland and seminal vesicles. Bones/joints: No acute fracture seen among the bones of the abdomen or pelvis. Small anterior osteophytes at multiple thoracic levels. Congenital lumbar stenosis. Soft tissues: Mild but extensive subcutaneous edema. Skin galileo along the course of a midline incision extending inferiorly from the umbilicus. Tiny fat-containing ventral hernia at the umbilicus, doubtful clinical significance. IMPRESSION: 1. Recent appendectomy. Hazy fat stranding throughout the right lower quadrant and a small amount of fluid but no frankly organized fluid collection. 2. Extensive mild-moderate small bowel dilatation with fluid and gas. Postoperative ileus is suspected in the setting of recent surgery although clinical correlation and follow-up are recommended. Dictated and Authenticated by: Italo Stuart MD. Ordering:KIET Santiago MD
[2023-01-31 07:03] LABS: HCT 41.4 % (40.0-50.0); MCH 27.3 pg (27.0-33.0); MCHC 33.8 % (32.0-36.0); MCV 81 fL (80-95); MPV 9.6 fL (8.0-11.0); Platelet Count 445 10^3/uL (130-400); RBC 5.13 10^6/uL (4.36-5.78); RDW 13.4 % (11.8-14.1); RDW-SD 39.8 fL
[2023-01-31 07:25] LABS: Anion Gap 10.3 mmol/L (3-11); BUN 15 mg/dL (7-18); CO2 30.7 mmol/L (21.0-32.0); CREATININE 0.8 mg/dL (0.70-1.30); Calcium 9.2 mg/dL (8.5-10.1); Chloride 95 mmol/L (98-107); Estimated GFR 107.15 (mL/min/1.73m2); Glucose 103 mg/dL (74-106); Sodium 136 mmol/L (136-145)
[2023-01-31 07:29] VITALS: BP 129/91; PULSE 101; TEMP 36.9; O2SAT 94
[2023-01-31] MEDS: Enoxaparin 40 MG/0.4 ML SYR SC (08:41)
[2023-01-31] MEDS: Metoclopramide 10 MG/2 ML VIAL 20 MG IVP ×3 (08:41→21:57)
[2023-01-31] MEDS: PIPERACILLIN/TAZO 3.375 GM in Normal Saline 50 ML IVPB ×3 (09:37→21:49)
--- NOTE | 2023-01-31 11:02 | W.PM.PROGNOT ---
Date of Service Date of service: 01/31/23 Time of Service: 07:00 Assessment and Plan Assessment and plan (1) Ileus, postoperative: Status: Acute Assessment and plan: NPO NG in place. To be clamped for activity this morning. Replace to suction if nausea or vomiting. Activity as tolerated Pulmonary toilet Pain is well controlled at this time Will order a suppository if needed to promote passing flatus and BM. Agree with assesment above Patient seen this afternoon around 1650 S: Murali is feeling okay this afternoon. He has had flatus and lots of bowel sounds. He feels hungry for the first time since surgery. His NG output has been 300 cc since the tube was placed at 2:00 this morning. His abdomen still feels distended but it is not painful. He states it feels like pressure. His NG tube has been clamped multiple times throughout the day so he could go for a walk and this has not caused him to have any nausea or vomiting. O: Vital signs are stable and he has been afebrile. White count is down to 12,000. CVS: RRR CT: CTA ABDO: soft, distended, +BS, PICCO in place with minimal discharge. A/P: POD #4 s/p open appendectomy for ruptured/necrotic appendix Minimal NG output, +BS and passing flatus- Will d/c the NG tube. was started on Reglan this am, give suppository to try and stimmulate the bowel Continue NPO overnight IV fluids for hydration (2) Acute appendicitis with localized peritonitis: Status: Acute Subjective Subjective Interval history since last seen: patient reports he has increased bowel sounds and he has been passing flatus. He is eager to be able to walk. Describes feeling abdominal pressure, no pain. Exam Const General: cooperative, healthy appearing and comfortable Orientation: alert and oriented x3 Resp Effort & Inspection: normal respiratory effort, no audible wheezes and no cough GI Inspection: distended Palpation: soft, no guarding and tender Percussion: tympanic to percussion Objective Last Vital Signs Temp 36.9 C 01/31/23 07:29 Pulse 101 H 01/31/23 07:29 Resp 16 01/30/23 21:33 BP 129/91 H 01/31/23 07:29 Pulse Ox 94 01/31/23 07:29 Laboratory Results - last 24 hr 01/31/23 01/31/23 06:31 06:31 WBC 12.00 H RBC 5.13 Hgb 14.0 Hct 41.4 MCV 81 MCH 27.3 MCHC 33.8 RDW 13.4 Plt Count 445 H MPV 9.6 Sodium 136 Potassium 3.0 L Chloride 95 L Carbon Dioxide 30.7 Anion Gap 10.3 BUN 15 Creatinine 0.8 Est GFR (CKD-EPI 2020) 107.15 Glucose 103 Calcium 9.2 Time Spent with Patient Time Spent with Patient: 25-34 minutes Time was spent: obtaining and/or reviewing separately otained hiistory, indepentently interpreting results and counseling the patient
[2023-01-31] MEDS: Pantoprazole 40 MG VIAL IVP (13:57)
[2023-01-31] MEDS: Bisacodyl 10 MG SUPP PR (17:13)
--- NOTE | 2023-01-31 17:19 | PDOC.CMPRO ---
Date of service: 01/31/23 Time of Service: 17:19 Care Management Progress Note Progress Note Text Progress Note Text: S/O: Murali was lying in bed, visiting with family when CM met with him. He stated that he is feeling uncomfortable due to his NG tube and gas. Per MD, he will be given bowel meds to assist with a bowel movement. His NG tube was pulled later this afternoon, due to low output. Murali stated that he is independent in the community, and will not require any services upon discharge. CM will continue to follow. A: Murali is a 53 year old man admitted on 01/27/23 with a ruptured appendix P:Anticipate Murali will be discharged home with no new services. He will follow up with his surgeon and plan of care as prescribed and transport with family. CM will follow and support discharge planning needs.
[2023-01-31] MEDS: hydroCHLOROthiazide 25 MG TAB PO (21:57)
[2023-01-31] MEDS: amLODIPine 5 MG TAB PO (21:57)
[2023-01-31] MEDS: Lisinopril 20 MG TAB PO (21:57)
[2023-02-01] MEDS: Lactated Ringers 1,000 ML 125 ML IV (02:26)
[2023-02-01] MEDS: Metoclopramide 10 MG/2 ML VIAL 20 MG IVP ×4 (04:36→22:24)
[2023-02-01] MEDS: PIPERACILLIN/TAZO 3.375 GM in Normal Saline 50 ML IVPB ×4 (04:45→22:23)
[2023-02-01 08:00] VITALS: BP 146/89; PULSE 65; RESP 18; TEMP 36.5; O2SAT 95
[2023-02-01] MEDS: Enoxaparin 40 MG/0.4 ML SYR SC (09:26)
[2023-02-01] MEDS: Pantoprazole 40 MG VIAL IVP (14:20)
[2023-02-01 15:26] VITALS: BP 159/102; PULSE 77; RESP 20; TEMP 37.1; O2SAT 96
--- NOTE | 2023-02-01 16:26 | PDOC.CMPRO ---
Date of service: 02/01/23 Time of Service: 16:26 Care Management Progress Note Progress Note Text Progress Note Text: S/O: Murali remains inpatient; no updates by time of documentation. CM will continue to follow. A: Murali is a 53 year old man admitted on 01/27/23 with a ruptured appendix P: Anticipate Murali will be discharged home with no new services. He will follow up with his surgeon and plan of care as prescribed and transport with family. CM will follow and support discharge planning needs.
--- NOTE | 2023-02-01 18:16 | W.PM.PROGNOT ---
Date of Service Date of service: 02/01/23 Time of Service: 18:16 Assessment and Plan Assessment and plan (1) Ileus, postoperative: Status: Acute Assessment and plan: We will advance him to a postop light diet tonight and see how he does. So far, signs are reassuring that this is improving. I will leave the drain in place given the high volume of the effluent over the past 24 hours. Subjective Subjective Interval history since last seen: Feels a lot better today. Has been tolerating clear liquids. He denies any nausea. He is passing flatus and had a bowel movement today. Exam GI Other: His abdomen remains fairly distended, but less so than when I saw him the other day. He does have some bowel sounds. He is not tender. His THOR drain is serous, but remains quite high volume. Objective Last Vital Signs Temp 98.8 F 02/01/23 15:26 Pulse 77 02/01/23 15:26 Resp 20 02/01/23 15:26 BP 159/102 H 02/01/23 15:26 Pulse Ox 96 02/01/23 15:26 Time Spent with Patient Time Spent with Patient: 25-34 minutes Time was spent: preparing to see the patient(eg.review tests) and counseling the patient
[2023-02-01] MEDS: Lisinopril 20 MG TAB PO (22:23)
[2023-02-01] MEDS: hydroCHLOROthiazide 25 MG TAB PO (22:23)
[2023-02-01] MEDS: amLODIPine 5 MG TAB PO (22:23)
[2023-02-01 23:09] VITALS: BP 156/93; PULSE 78; RESP 19; TEMP 36.8; O2SAT 95
[2023-02-02] MEDS: Metoclopramide 10 MG/2 ML VIAL 20 MG IVP ×2 (05:53→10:27)
[2023-02-02] MEDS: PIPERACILLIN/TAZO 3.375 GM in Normal Saline 50 ML IVPB ×2 (05:53→10:28)
[2023-02-02] MEDS: Enoxaparin 40 MG/0.4 ML SYR SC (07:35)
--- NOTE | 2023-02-02 09:46 | W.PM.PROGNOT ---
Date of Service Date of service: 02/02/23 Time of Service: 09:46 Assessment and Plan Assessment and plan (1) Ileus, postoperative: Status: Acute Assessment and plan: Murali is tolerating the postop diet well. No nausea or vomiting after breakfast this morning. His pain is well controlled. He is passing flatus and having bowel movements. He continues to have a moderate amount of serous drainage from the THOR drain. This has decreased significantly over the the past 24 hours. This will however need to remain in place when he is discharged home. Education and training has been provided to both the patient and his and they both verbalized feeling confident and competent in drain management. Will await until early afternoon to see how Murali does with lunch. If he continues to do well he can be discharged home. He will be set up with a follow-up appointment next week with the surgical office. Subjective Subjective Interval history since last seen: Arrived with Murali eating breakfast. He states he is feeling the best today that he has felt his entire duration of his hospital stay. He denies any fevers, chills or night sweats. He did describe that after he ate a large meal last night he did have some nausea and vomiting. He states that the food that he consumed was heavy items and feels this is why it caused him GI upset. He and his have been actively participating in drain management. Cleaning up the area reapplying dressings and emptying the drain. He expresses that he is eager to return home and they both verbalized that they are feeling confident in their abilities to manage the drain once at home. Exam Const General: cooperative, healthy appearing and comfortable Orientation: alert and oriented x3 Resp Effort & Inspection: normal respiratory effort, no audible wheezes and no cough GI Inspection: normal to inspection Other: Serous colored fluid in the THOR drain Objective Last Vital Signs Temp 36.8 C 02/01/23 23:09 Pulse 78 02/01/23 23:09 Resp 19 02/01/23 23:09 BP 156/93 H 02/01/23 23:09 Pulse Ox 95 02/01/23 23:09 Time Spent with Patient Time Spent with Patient: <25 minutes Time was spent: counseling the patient
[2023-02-02] MEDS: Pantoprazole 40 MG VIAL IVP (13:36)
--- NOTE | 2023-02-02 13:38 | W.PM.DS.N ---
Date of service: 02/02/23 Time of Service: 13:38 DS: Diagnosis Discharge Diagnosis (1) Ileus, postoperative: Status: Acute Discharge Plan Disposition Patient Disposition: Home Condition: Good Discharge Details Reason For Visit: Acute Appendicitis with Perforation Admit Date/Time: 01/27/23 12:46 Admit Provider: Harika Diaz Attending Provider: Harika Diaz Primary Care Provider: Edil eKy Hospital Course Hospital Course: 53-year-old male with a history of hypertension hyperlipidemia presented to the ER on 01/27 at which time he was diagnosed with acute appendicitis and localized peritonitis. He underwent laparoscopic appendectomy which was converted to open for he had acute appendicitis with perforation. He has been treated with IV Zosyn. Over the course of his stay his postoperative recovery was complicated by ileus. After decompression with NG tube and bowel rest this resolved. He is now tolerating a soft postop diet, ambulating without difficulty and managing his THOR drain. Both he and his participated in education around THOR drain management. Both verbalized understanding and confidence in their abilities to manage this at home. He will be discharged home with a THOR drain in place. He will need to return to the surgical office next week in follow up and possible removal of the THOR drain. Home Meds and New Rx's Prescriptions: Continued ibuprofen 200 mg capsule 200 mg PO Q6H PRN acetaminophen [Tylenol] 325 mg tablet 325 mg PO ONCE PRN No Action amlodipine 5 mg tablet 5 mg PO QPM Patient Comments: TAKE 1 TABLET BY MOUTH DAILY Rx Instructions: pt takes BP meds at night lisinopril-hydrochlorothiazide 20-25 mg tablet 1 tab PO QPM Patient Comments: TAKE ONE TABLET BY MOUTH EVERY DAY Rx Instructions: pt takes BP meds at night Discharge Instructions Instructions: Laparoscopic Appendectomy (DC) Additional Instructions: Please monitor the fluid output from your drain. It is very helpful if you keep a log of the amount of fluid that you remove each day. This will help us determine when we can remove the drain. No swimming, soaking in hot tubs or bath tubs until your incisions are healed. We will remove your galileo next week at your visit. In the mean time you can keep this area covered with a large band-aid or gauze and tape. If you start having abdominal pain, fevers, chills, nausea or vomiting these can be signs of infection. Please call the on-call surgeon ([phone]) or go to the ER for further evaluation if the symptoms occur. Please evaluate your incision at least every other day looking for any signs of redness, increased swelling or drainage. These are also signs of possible infection and you should be evaluated if these occur. Stand Alone Forms: Nursing Discharge Form Referrals: Gin Reynolds PA [PH[employer] BUSINESS MAIL ENTRY CLERK] - 02/08/23 2:45 pm Activity:: Activity as Tolerated Equipment/Supplies:: No Equipment Needed Diet:: As Tolerated Discharge Orders Discharge Orders: Discharge Order (Routine); Ordered 02/02/23 Ordered By: Gin Reynolds Discharge Data Discharge Date/Time-TO BE ENTERED AT DEPARTURE: 02/02/23 16:15 DS: Summary Time Spent with Patient providing and/or coordinating discharge services: Less than 30 minutes Status at Discharge Functional status at discharge: independent ambulation Overall status at discharge: patient is progressing back to baseline Mental Status: mental status grossly normal Speech and Movement: speech and movement normal Mood: congruent mood Affect: normal affect Exam Const General: cooperative, healthy appearing and comfortable Orientation: alert and oriented x3 Resp Effort & Inspection: normal respiratory effort, no audible wheezes and no cough GI Inspection: normal to inspection Other: Serous colored fluid in the THOR drain Psych Mental Status: mental status grossly normal Speech and Movement: speech and movement normal Mood: congruent mood Affect: normal affect DS: Data Vitals/I&O Vitals and I&O: Vital Signs Temperature 36.8 C 02/01/23 23:09 Temperature Source Tympanic 02/01/23 23:09 Pulse 78 02/01/23 23:09 Pulse Rhythm Regular 02/02/23 07:40 Pulse 73 01/27/23 06:40 Respiratory Rate 19 02/01/23 23:09 Respiratory Effort Normal 02/02/23 07:40 Respiratory Depth Normal 02/02/23 07:40 Respiratory Pattern Normal 02/02/23 07:40 Blood Pressure 156/93 H 02/01/23 23:09 Blood Pressure Mean 90 01/27/23 06:31 Blood Pressure Position Supine 01/27/23 04:14 Pulse Oximetry 95 02/01/23 23:09 Respiratory End-tidal CO2 35 01/27/23 12:51 Oxygen Delivery Method Room Air 02/01/23 23:09 Oxygen Flow Rate 0 02/01/23 23:09 Pain Level 0 02/01/23 15:26 Intake & Output 02/01/23 02/02/23 02/02/23 18:59 06:59 18:59 Intake Total 1060 / 1160 100 / 1160 460 / 460 Output Total 130 / 130 60 / 60 Balance 930 / 1030 100 / 1030 400 / 400 Intake: IV 1060 / 1160 100 / 1160 100 / 100 Oral 360 / 360 Injectate 0 / 0 Left Abdomen 0 / 0 Output: Drainage 130 / 130 60 / 60 Left Abdomen 130 / 130 60 / 60 Other: Urine Appearance Clear Clear Clear Comment pt reported voided in the last hour. PFSH All Active Problems (Updated 01/28/23 @ 10:52 by Harika Diaz MD) Ileus, postoperative (Acute) Acute appendicitis with localized peritonitis (Acute) Hyperlipidemia (Acute) Hypertension (Chronic) Surgical History (Updated 01/31/23 @ 09:08 by Christie Phan) Hx of appendectomy (~01/2023) Family History Sister , 42 Cancer Social History Smoking/Tobacco Use Status: Never Second Hand Exposure: Yes Smoking risk assessment performed?: Yes Alcohol Intake: current Alcohol Intake frequency: a few times a week Alcohol type: beer Drug use: Never Substance use type: does not use Household members: spouse current occupation: contractor Pets and animals: Yes Pets and animals: cat(s), dog(s) and horse(s) Sexually active: Yes Do you think of yourself as: straight/heterosexual What type of physical activity do you participate in: walking Do you feel safe at home: Yes Do you feel safe in your relationship?: Yes Time Spent with Patient Time Spent with Patient: <45 minutes Time was spent: preparing to see the patient(eg.review tests) and counseling the patient
--- NOTE | 2023-02-02 17:17 | PDOC.CMDIS ---
Date of service: 02/02/23 Time of Service: 17:18 LACE Index Scoring Tool Questions: Length of Stay (in days): 4 - 6 Was the patient admitted via the E.D.?: Yes E.D. Visits: 0 Answers: Total Score: 7 Risk of Readmission: Low Risk Care Management Discharge Plan Reason for Hospitalization: ruptured appendix Discharge Plan: Murali will return home with no new services. His will drive him home via private vehicle. He will follow up with surgical services and his discharge plan of care. He is happy to be going home. Patient/Family Education Needs: Review discharge instructions and limitations, discussion of self care needs including ask me three.
== END 2023-02-02 16:15 | disposition home or self-care (01) | DRG 339 ==
LOC: ER 10:14 → DSU 10:54 → MS 13:10
PROVIDERS: Surgery; Admitting Provider Surgery; Emergency Provider Emergency Medicine Emergency Medical Services; PCP Nurse Practitioner Family; Visit Provider Surgery
PROC: 0DTJ4ZZ Resection of Appendix, Percutaneous Endoscopic Approach (ICD-10-PCS; CPT 44970; principal; 2023-01-27 07:30)
DX: K35.32 Acute appendicitis with perforation, localized peritonitis, and gangrene, without abscess (principal); K56.7 Ileus, unspecified; K91.89 Other postprocedural complications and disorders of digestive system; I10 Essential (primary) hypertension; E78.5 Hyperlipidemia, unspecified; Y83.6 Removal of other organ (partial) (total) as the cause of abnormal reaction of the patient, or of later complication, without mention of misadventure at the time of the procedure
CPT/HCPCS: 44960; 36415; 71045; 80048; 80053; 83690; 85027; 87077; 93005; 96365; 96375; 96376; 99285; J1650; 74018; 74177; 81003; 81015; 83605; 83735; 84484; 85025; 87070; 87075; 87186; 87205; 88304; 93010; J0131; J0295; J1100; J1885; J2001; J2250; J2270; J2405; J2543; J2704; J2765; J3010; J3490; Q9967

== ENCOUNTER 2023-02-14 09:49 | Outpatient (REF) | payer MEDICAID, SELFPAY ==
[2023-02-14 10:01] LABS: Abs Immature Grans 0.09 10^3/uL (0.0-0.06); Absolute Eosinophil Count 0.04 10^3/uL (0.0-0.7); Basophils % 0.5; Eosinophils % 0.2; HCT 39.7 % (40.0-50.0); HGB 13.1 g/dL (13.5-17.5); Immature Grans % 0.5; Lymphocytes % 6.8; MCH 27.1 pg (27.0-33.0); MCV 82 fL (80-95); MPV 9.2 fL (8.0-11.0); Monocytes % 12.1; Neutrophils % 79.9; Platelet Count 605 10^3/uL (130-400); RBC 4.83 10^6/uL (4.36-5.78); RDW 13.9 % (11.8-14.1); RDW-SD 41.5 fL; WBC 19.97 10^3/uL (4.4-10.8)
[2023-02-14 10:09] LABS: Absolute Lymphocyte Count 1.36 10^3/uL (1.2-3.4); Absolute Monocyte Count 2.42 10^3/uL (0.1-0.8); Absolute Neutrophil Count 15.96 10^3/uL (1.2-6.7)
[2023-02-14 10:25] LABS: Anion Gap 8.8 mmol/L (3-11); BUN 13 mg/dL (7-18); C-Reactive Protein 21.88 mg/dL (0.0-0.3); CO2 28.2 mmol/L (21.0-32.0); CREATININE 0.8 mg/dL (0.70-1.30); Calcium 9.3 mg/dL (8.5-10.1); Chloride 99 mmol/L (98-107); Estimated GFR 107.15 (mL/min/1.73m2); Glucose 103 mg/dL (74-106); Potassium 3.6 mmol/L (3.5-5.1); Sodium 136 mmol/L (136-145)
[2023-02-14 10:33] LABS: Diff Comment Diff Reviewed; RBC Morphology Normal
== END 2023-02-14 09:50 | disposition home or self-care (01) ==
LOC: LBN 09:49
PROVIDERS: PCP Nurse Practitioner Family; Visit Provider Physical Therapy Assistant
DX: R50.9 Fever, unspecified (principal); Z90.49 Acquired absence of other specified parts of digestive tract
CPT/HCPCS: 80048; 85025; 86140

== ENCOUNTER 2023-02-14 12:13 | Outpatient (CLI) | payer MEDICAID, SELFPAY ==
--- NOTE | 2023-02-14 11:30 | DI.CT_ITS ---
Exam(s) CT ABDOMEN PELVIS W EXAM: CT ABDOMEN PELVIS W CLINICAL HISTORY: febrile, s/p open appy, perforated 01/27, leukocytosis. TECHNIQUE: Imaging Protocol: Axial computed tomography images with coronal and sagittal reformatted images were created and reviewed CONTRAST MATERIAL: Intravenous: Omnipaque 350 Contrast volume:100 ml Oral: yes COMPARISON: CT CT ABDOMEN PELVIS W from 01/31/2023 FINDINGS: ABDOMEN: Lung Bases: Normal where visualized. Liver: Enlarged. Severe fatty infiltration. No measurable mass. Gallbladder and biliary tract: No radiodense calculus or dilation. Pancreas: Normal density, no abnormal calcifications or inflammatory process. Spleen: Normal. Kidneys: Normal size, contour and axis. No radiodense stones or obstructive uropathy. No suspicious m asses seen. Adrenal glands: No masses seen. Abdominal Aorta: Abdominal portion non-dilated. Soft tissues: Midline surgical scar is unremarkable. PELVIS: Bladder: No gross wall thickening. No calculi.No focal mass. Bowel: No obstruction. No bowel wall thickening. Appendix normal. Peritoneal cavity: Previously noted drain has been removed. There is a focal fluid collection or abs cess in the right lower quadrant measuring roughly 5 cm in diameter. It lies medial to the base of t he cecum adjacent to the terminal ileum. Question of few other smaller adjacent collections in right paracolic gutter. Mild adjacent stranding. The the area suboptimally evaluated due to lack of oral contrast in the terminal ileum. No ascites. No free air. Bones: Unremarkable for age. Reproductive organs: Within normal limits. Lymph nodes: Unremarkable. Impression: Roughly 5 centimeter abscess and right lower quadrant, adjacent to base of cecum with small contiguou s collections. RADIATION DOSE DELIVERED: Total DLP DATA REPOSITORY: All CT scans at this facility are submitted to the National Radiology Data Registry (NRDR) Dose Index Registry (DIR) with the [employer] (ACR). RADIATION OPTIMIZATION: All CT scans at this facility use at least one of these dose optimization te chniques: automated exposure control; mA and/or kV adjustment per patient size (includes targeted exa ms where dose is matched to clinical indication); or iterative reconstruction.
[2023-02-14] MEDS: Breeza Beverage 473 ML BTL PO (12:07)
[2023-02-14] MEDS: Omnipaque 350 MG/ML 50 ML BTL PO (12:08)
[2023-02-14] MEDS: Omnipaque 350 MG/ML 100 ML BTL IJ (14:13)
[2023-02-14] MEDS: Normal Saline - Diluent 50 ML VIAL IJ (14:13)
== END 2023-02-14 12:33 ==
LOC: DI 12:14
PROVIDERS: PCP Nurse Practitioner Family; Visit Provider Physical Therapy Assistant
DX: D72.829 Elevated white blood cell count, unspecified (principal); R50.9 Fever, unspecified; Z90.49 Acquired absence of other specified parts of digestive tract
CPT/HCPCS: 74177; J3490; Q9967

== ENCOUNTER 2023-02-19 09:43 | Outpatient (REF) | payer MEDICAID, SELFPAY ==
[2023-02-19 10:05] LABS: Abs Immature Grans 0.14 10^3/uL (0.0-0.06); Absolute Basophil Count 0.07 10^3/uL (0.0-0.2); Absolute Eosinophil Count 0.26 10^3/uL (0.0-0.7); Absolute Lymphocyte Count 1.42 10^3/uL (1.2-3.4); Absolute Monocyte Count 0.71 10^3/uL (0.1-0.8); Absolute Neutrophil Count 5.37 10^3/uL (1.2-6.7); Basophils % 0.9; Eosinophils % 3.3; HCT 39.1 % (40.0-50.0); HGB 12.7 g/dL (13.5-17.5); Immature Grans % 1.8; Lymphocytes % 17.8; MCH 26.8 pg (27.0-33.0); MCHC 32.5 % (32.0-36.0); MCV 83 fL (80-95); MPV 9.1 fL (8.0-11.0); Monocytes % 8.9; Neutrophils % 67.3; Platelet Count 502 10^3/uL (130-400); RBC 4.73 10^6/uL (4.36-5.78); RDW 14.1 % (11.8-14.1); RDW-SD 42.5 fL; WBC 7.97 10^3/uL (4.4-10.8)
[2023-02-19 10:19] LABS: ALT 69 U/L (16-63); AST 12 U/L (15-37); Albumin 2.6 g/dL (3.4-5.0); Alkaline Phosphatase 157 U/L (46-116); Anion Gap 9.2 mmol/L (3-11); BUN 15 mg/dL (7-18); Bilirubin, Total 0.2 mg/dL (0.2-1.0); C-Reactive Protein 4.79 mg/dL (0.0-0.3); CO2 27.8 mmol/L (21.0-32.0); CREATININE 0.9 mg/dL (0.70-1.30); Calcium 9.1 mg/dL (8.5-10.1); Chloride 100 mmol/L (98-107); Glucose 100 mg/dL (74-106); Potassium 4.3 mmol/L (3.5-5.1); Sodium 137 mmol/L (136-145); Total Protein 7.2 g/dL (6.4-8.2)
== END 2023-02-19 09:44 | disposition home or self-care (01) ==
LOC: LBN 09:43
PROVIDERS: PCP Nurse Practitioner Family; Visit Provider Surgery
DX: T81.43XA Infection following a procedure, organ and space surgical site, initial encounter (principal)
CPT/HCPCS: 80053; 85025; 86140

== ENCOUNTER 2023-10-29 16:47 | Outpatient (CLI) | payer MEDICAID, SELFPAY ==
[2023-10-29 16:00] LABS: Hemoglobin A1C 5.8 % (<5.7)
[2023-10-29 16:43] LABS: Estimated GFR 91.12 (mL/min/1.73m2); Potassium 3.2 mmol/L (3.5-5.1)
[2023-10-29 16:57] LABS: Calculated LDL 142 mg/dL (<100); Cholesterol 225 mg/dL (<200); HDL Cholesterol 64 mg/dL (40-60); Triglyceride 97 mg/dL (<150)
[2023-10-30 18:45] LABS: PSA, Screening 0.5 ng/mL (<=3.5)
== END 2023-10-29 16:48 | disposition home or self-care (01) ==
LOC: LBO 16:48
PROVIDERS: PCP Nurse Practitioner Family; Visit Provider Nurse Practitioner Family
DX: E78.2 Mixed hyperlipidemia (principal); I10 Essential (primary) hypertension; Z13.1 Encounter for screening for diabetes mellitus; Z12.5 Encounter for screening for malignant neoplasm of prostate
CPT/HCPCS: 36415; 80061; 84153; 82565; 83036; 84132

== ENCOUNTER 2024-07-20 09:11 | Emergency (ER) | payer MEDICAID, SELFPAY ==
[2024-07-20 09:15] VITALS: BP 180/100; PULSE 63; RESP 15; TEMP 36.2; O2SAT 98
--- NOTE | 2024-07-20 09:26 | W.ED.GENAD ---
Discharge Plan Disposition Patient Disposition: Home Condition: Stable Discharge Details Clinical Impression: Iliotibial band tendinitis of left side Primary Care Provider: Edil Key ED Provider: Rodrigo Hughes Home Meds and New Rx's Prescriptions: Continued ibuprofen 200 mg capsule 200 mg PO Q6H PRN amlodipine 5 mg tablet 5 mg PO QPM Qty: 90 3RF Rx Instructions: pt takes BP meds at night lisinopril-hydrochlorothiazide 20-25 mg tablet 1 tab PO QPM Qty: 90 3RF Patient Comments: TAKE ONE TABLET BY MOUTH EVERY DAY Rx Instructions: pt takes BP meds at night Discharge Instructions Instructions: Iliotibial band syndrome Additional Instructions: You were seen in the emergency department for your left hip pain, you have some enthesophytes at the IT band insertion around the left hip this is likely causing some tendinitis or IT band syndrome. Please use therapeutic dosing of Tylenol (acetamenophen) & Advil (ibuprofen) in an alternating fashion as follows: Take 1000mg of Tylenol every 6 hours without missing doses- that is 4 times per day. [place] in between the Tylenol dosings, take 400-600mg of Advil also on a 6 hour schedule, that is also 4 times per day. The daily maximum dosing of Tylenol is 4000mg, and the daily maximum dosing of Advil is 2400mg. This is safe to do for weeks. Please note that some common cold medications & prescription pain medications may contain acetamenophen and you need to read OTC drug labels and factor that in to maximum daily dosings. Use topical Voltaren gel on areas of pain, perform stretching exercises as well as foam roller activities, pursue physical therapy if desired, use gentle heat to help relax the muscle as well, follow-up with orthopedics for failure to improve Stand Alone Forms: Physical Therapy Referral Referrals: Edil Key, HOOP MACHINE OPERATOR [Primary Care Provider] - Discharge Data Discharge Date/Time-TO BE ENTERED AT DEPARTURE: 07/20/24 10:30 HPI General Date/Time Provider Initiated Documentation: 07/20/24 09:18. HPI Narrative: 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 Severity is described as severe. Palliating factors include OTC analgesics without relief. Provoking factors include walking. Patient not anticoagulated. Related Data Home Medications ?Medication ?Instructions ?Recorded ?Confirmed ibuprofen 200 mg capsule 200 mg PO Q6H PRN 09/27/20 07/20/24 amlodipine 5 mg tablet 5 mg PO QPM #90 tabs 01/16/24 07/20/24 lisinopril 20 1 tab PO QPM #90 tabs 04/16/24 07/20/24 mg-hydrochlorothiazide 25 mg tablet Previous Rx's ?Medication ?Instructions ?Recorded amlodipine 5 mg tablet 5 mg PO QPM #90 tabs 01/16/24 lisinopril 20 1 tab PO QPM #90 tabs 04/16/24 mg-hydrochlorothiazide 25 mg tablet Allergies Allergy/AdvReac Type Severity Reaction Status Date / Time No Known Allergies Allergy Verified 07/20/24 09:18 General Stated Complaint: Orthopedic PAZ: 4 Review of Systems All systems reviewed & are unremarkable except as noted in HPI and below Exam Narrative Exam Narrative: GENERAL APPEARANCE: Well-nourished, non-toxic, awake and alert, atraumatic, no acute distress. SKIN: Warm, pink, dry, intact, without rashes/lesions/ulcerations. HEAD: Normocephalic, atraumatic, normal hair distribution for gender/age. EYES: Normal conjunctiva, no exudates on lids/lashes. ENT: Nares patent, no circumoral cyanosis, no facial swelling NECK: Supple, trachea midline, painless cervical ROM. LUNGS/CHEST: Non-labored respirations, normal A/P diameter, symmetrical expansion, no chest wall deformity HEART (CV/PV): No peripheral edema, no JVD. ABDOMEN: Soft, non-distended, no guarding. MSK: Normal ROM, no swelling/deformity to bilateral UEs or LEs, moving all extremities without weakness, no cyanosis, spine midline without tenderness, normal curvature, tenderness on the greater trochanter of the left hip, able to move legs in all range of motion, neurovascularly intact without skin changes or swelling or signs of DVT NEURO: Mental Status AAOx4 - alert to person, place, time, events No facial droop, no forehead involvement. Motor: No focal weakness - strength 5/5 in bilateral UEs and LEs, proximal and distal, symmetric. Sensory: sensation intact to light touch globally. Gait antalgic. PSYCH: euthymic, cooperative, pleasant, appropriate speech Course Vital Signs Vital signs: Vital Signs Temperature 36.2 C L 07/20/24 09:15 Pulse 63 07/20/24 09:15 Respiratory Rate 15 07/20/24 09:15 Blood Pressure 180/100 H 07/20/24 09:15 Pulse Oximetry 98 07/20/24 09:15 Temperature 36.2 C L 07/20/24 09:15 Temperature Source Temporal Artery Scan 07/20/24 09:15 Pulse 63 07/20/24 09:15 Respiratory Rate 15 07/20/24 09:15 Blood Pressure 180/100 H 07/20/24 09:15 Blood Pressure Position Sitting 07/20/24 09:15 Pulse Oximetry 98 07/20/24 09:15 Oxygen Delivery Method Room Air 07/20/24 09:15 Oxygen Flow Rate 0 07/20/24 09:15 Pain Level 5 07/20/24 09:19 Medical Decision Making This dictation utilizes [id number] dictation software and may contain unedited grammatical errors. 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 Severity is described as severe. Palliating factors include OTC analgesics without relief. Provoking factors include walking. Patients' medical history: Hypertension, hyperlipidemia. Family and social history: Noncontributory. Pertinent exam findings / vital signs include tenderness on the greater trochanter of the left hip, able to move legs in all range of motion, neurovascularly intact without skin changes or swelling or signs of DVT. Differential / pathologies of concern include IT band syndrome, fracture, arthritis, labral tear, unlikely sciatica. Diagnostic studies of: -XR left hip-shows enthesophytes at IT band insertion. Interventions of: -Recommend OTC analgesics. 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 Findings not consistent with fracture, NV compromise, DVT. Disposition of Iliotibial band tendinitis of left side. Patient verbalized understanding of the plan and return to ED criteria and engaged in shared decision making. Medical Records Medical records reviewed: Yes I reviewed the patient's medical records. Imaging Data Radiologic Study: Attestation: I personally reviewed and interpreted this imaging study as follows: Imaging: X-Ray Radiologist's impression: Exam: XR Left Hip Exam date and time: 07/20/2024 9:49 AM Age: 54 years old Clinical indication: Other: L hip pain TECHNIQUE: Imaging protocol: Radiologic exam of the left hip. Views: 2 or 3 views hip with pelvis when performed. COMPARISON: CT ABDOMEN PELVIS W 02/14/2023 2:12 PM FINDINGS: Bones/joints: Traction enthesophytes of bilateral greater trochanters Soft tissues: Unremarkable. IMPRESSION: No acute fracture or dislocation. Dictated and Authenticated by: John Maki MD. Quality:SDOH Health Related Social Needs: No Data to Display PFSH All Active Problems (Updated 07/20/24 @ 10:18 by DAVIDA Boateng) Iliotibial band tendinitis of left side (Acute) Abscess, intra-abdominal, postoperative (Acute) Leukocytosis (Acute) Febrile (Acute) Hyperlipidemia (Acute) Hypertension (Chronic) Surgical History Hx of appendectomy (~01/2023) Family History Sister , 42 Cancer Social History Smoking/Tobacco Use Status: Never Second Hand Exposure: Yes Smoking risk assessment performed?: Yes Alcohol Intake: current Alcohol Intake frequency: a few times a week Alcohol type: beer Drug use: Never Substance use type: does not use Household members: spouse current occupation: contractor Pets and animals: Yes Pets and animals: cat(s), dog(s) and horse(s) Sexually active: Yes Do you think of yourself as: straight/heterosexual What type of physical activity do you participate in: walking Do you feel safe at home: Yes Do you feel safe in your relationship?: Yes PAWSS Have you Been Recently Intoxicated or Drunk Within the Last 30 days?: No Have you Ever Experienced Previous Episodes of Alcohol Withdrawal?: No Have you ever Experienced Withdrawal Seizures?: No Have you ever Experienced Delirium Tremens(DT)s?: No Have you ever undergone Alcohol Rehabilitation Treatment (i.e, inpt ot outpatient treatment programs)?: No Have you ever Experienced Blackouts?: No Have you ever Combined Alcohol with other Downers within the last 90 days?: No Have you ever Combined Alcohol with any other Substance of Abuse during the last 90 days?: No Result: 0
--- NOTE | 2024-07-20 09:30 | DI.RAD_ITS ---
Exam(s) XR HIP LT COMPLETE AP PELVIS EXAM: XR HIP LT COMPLETE AP PELVIS CLINICAL HISTORY: L hip pain. TECHNIQUE: 2D digital imaging was performed of the left hip. Two views were obtained. AP pelvis an d lateral left hip views were obtained. COMPARISON: CR,XR XR ABDOMEN FLAT PLATE from 01/28/[address] ABDOMEN PELVIS W from 02/14/2023 FINDINGS: BONES: No acute fracture is present. No bony destructive lesion is seen. There are enthesophytes seen at the greater trochanters. JOINTS: No dislocation present. The joint spaces are well maintained. The sacroiliac joints are inta ct. There is again seen fusion of the inferior aspect of the sacroiliac joints which is unchanged. The symphysis pubis is unremarkable. SOFT TISSUE: Normal. IMPRESSION: No acute abnormality. DATA REPOSITORY: RADIATION DOSE DELIVERED:
[2024-07-20 09:59] VITALS: BP 148/94; PULSE 70; RESP 14; TEMP 37; O2SAT 98
--- NOTE | 2024-07-20 10:07 | DI.VRAD_ITS ---
PROCEDURE INFORMATION: Exam: XR Left Hip Exam date and time: 07/20/2024 9:49 AM Age: 54 years old Clinical indication: Other: L hip pain TECHNIQUE: Imaging protocol: Radiologic exam of the left hip. Views: 2 or 3 views hip with pelvis when performed. COMPARISON: CT ABDOMEN PELVIS W 02/14/2023 2:12 PM FINDINGS: Bones/joints: Traction enthesophytes of bilateral greater trochanters Soft tissues: Unremarkable. IMPRESSION: No acute fracture or dislocation. Dictated and Authenticated by: John Maki MD. Ordering:MADONNA Wallace MD
== END 2024-07-20 10:30 | disposition home or self-care (01) ==
PROVIDERS: Emergency Provider Physician Assistant; PCP Nurse Practitioner Family
DX: M76.32 Iliotibial band syndrome, left leg (principal)
CPT/HCPCS: 99283; 73502

== ENCOUNTER 2024-11-14 00:55 | Outpatient (CLI) | payer MEDICAID, SELFPAY ==
[2024-11-14 16:35] LABS: ALT 39 U/L (16-63); AST 21 U/L (15-37); Albumin 3.8 g/dL (3.4-5.0); Alkaline Phosphatase 70 U/L (46-116); Anion Gap 10.8 mmol/L (3-11); BUN 24 mg/dL (7-18); Bilirubin, Total 0.3 mg/dL (0.2-1.0); CO2 26.2 mmol/L (21.0-32.0); CREATININE 1.1 mg/dL (0.70-1.30); Calcium 9.2 mg/dL (8.5-10.1); Calculated LDL 137 mg/dL (<100); Chloride 106 mmol/L (98-107); Cholesterol 239 mg/dL (<200); Estimated GFR 80.77 (mL/min/1.73m2); Glucose 90 mg/dL (74-106); HDL Cholesterol 66 mg/dL (>or=40); Potassium 3.7 mmol/L (3.5-5.1); Sodium 143 mmol/L (136-145); Triglyceride 182 mg/dL (<150)
[2024-11-14 17:20] LABS: Hemoglobin A1C 5.8 % (<5.7)
== END 2024-11-14 00:56 | disposition home or self-care (01) ==
PROVIDERS: PCP Nurse Practitioner Family; Visit Provider Nurse Practitioner Family
DX: Z13.1 Encounter for screening for diabetes mellitus (principal); I10 Essential (primary) hypertension; Z13.220 Encounter for screening for lipoid disorders
CPT/HCPCS: 36415; 80053; 80061; 83036

== ENCOUNTER 2025-02-27 07:23 | Day surgery (SDC) | payer OTHER, SELFPAY ==
[2025-02-27 07:45] VITALS: BP 128/87; PULSE 57; RESP 18; TEMP 36.4; O2SAT 97
[2025-02-27] MEDS: Lactated Ringers 1,000 ML 80 ML IV (08:52)
--- NOTE | 2025-02-27 09:36 | W.ANESPRE ---
General Info Date of Service Date Performed: 02/27/25 Height: 5 ft 7.5 in Weight: 95.5 kg Body Mass Index (BMI): 32.5 Surgical Procedure: Operation Date: 02/27/25 10:05 Proposed Procedure Side Surgeon mal Ashford MD Meds Allergies and Home Medications Allergies Allergy/AdvReac Type Severity Reaction Status Date / Time No Known Allergies Allergy Verified 02/27/25 08:04 Home Medication ?Medication ?Instructions ?Recorded ibuprofen 200 mg capsule 200 mg PO Q6H PRN 09/27/20 lisinopril 20 1 tab PO QPM #90 tabs 04/16/24 mg-hydrochlorothiazide 25 mg tablet amlodipine 5 mg tablet 5 mg PO QPM #90 tabs 01/16/25 bisacodyl 5 mg tablet,delayed 5 mg PO ONCE #4 tabs 02/05/25 release (Dulcolax (bisacodyl)) polyethylene glycol 3350 17 17 g PO ONCE #238 grams 02/05/25 gram/dose oral powder Current Visit Medications: Current Medications Generic Name Dose Route Start Last Admin Trade Name Freq PRN Reason Stop Dose Admin Ringer's Solution 1,000 mls @ 80 mls/hr 02/27/25 06:00 02/27/25 08:52 IV 03/28/25 23:59 80 mls/hr INFUSION BLANCO Administration IV Miscellaneous Supplies 1 each 02/27/25 06:00 Iv Access IV 03/28/25 23:59 DIRECTED BLANCO Sodium Biphosphate/Sodium Phosphate 133 ml 02/27/25 06:00 Na Phosphate Enema-Adult 133 Ml Btl IN 02/27/25 23:59 DIRECTED BLANCO Sodium Chloride 0 ml 02/27/25 06:00 Normal Saline Flush 10 Ml Syr IV 03/28/25 23:59 PRN PRN Sodium Chloride 0 ml 02/27/25 06:00 Normal Saline 10 Ml Vial IJ 03/28/25 23:59 DIRECTED PRN Sterile Water 0 ml 02/27/25 06:00 Water,Injection,Sterile 10 Ml Vial IJ 03/28/25 23:59 DIRECTED PRN PFSH Active Problems Active Problems: Problem Status Onset Code Abscess, intra-abdominal, postoperative Acute T81.43XA Leukocytosis Acute D72.829 Hyperlipidemia Acute E78.5 Hypertension Chronic I10 Surgical History Surgical History Hx of appendectomy (~01/2023) Tobacco Smoking/Tobacco Use Status: Never Passive smoking exposure: Yes Second hand exposure: Yes Alcohol Alcohol Intake: current Alcohol intake frequency: a few times a week Alcohol type: beer Substance Use Substance use: Never Substance use type: does not use Vital Signs and Lab Results Vital Signs Most Recent Vital Signs in EMR: Most Recent Vital Signs Temp Pulse Resp BP Pulse Ox 36.4 C L 57 L 18 128/87 97 02/27/25 07:45 02/27/25 07:45 02/27/25 07:45 02/27/25 07:45 02/27/25 07:45 Imaging and Studies Imaging and Studies Study information below may be from another EMR and interpreted by another provider. Please see original notes in EMR for more complete details. EKG Summary: EKG PATIENT NAME: Ramin Yadav #: [id number] ORDERING PROVIDER: Quan Monahan M.D. PRIMARY CARE PROVIDER:MOY ELMORE NP DATE/TIME OF SERVICE: 01/27/23 0423 : 1970PERFORMING LOCATION: ER APPROVED REPORT Exam: Resting ECG Reason for Exam: abd pain Patient Location: E HR:77 bpm ECG Measurements Heart Rate 77 AXIS IN 154 P 12 QRSd 134 QRS 4 QT 412 T-25 QTc 468 Conclusion Sinus rhythm...normal P axis, V-rate 60- 99 Nonspecific intraventricular conduction delay...QRSd >115mS, not LBBB/RBBB Anesthesia Assessment and Plan Anesthesia History Personal History: No History of Anesthesia Complications Family History: No Family History of Anesthesia Complications Exercise Tolerance Exercise Tolerance: Metabolic Equivalents>4 Pertinent Negatives Pertinent Negatives: No Symptoms of GERD, No Major Cardiovascular Symptoms or Complaints, No Major Pulmonary Symptoms or Complaints and No History of CVA/TIA Cardiac & Pulmonary Exam Cardiac Exam: Normal S1/S2 Heart Sounds Pulmonary Exam: Clear Bilateral Breath Sounds Implantable Cardiac Device Does patient have a Pacemaker or an ICD?: No Airway Exam Known Difficult Airway: No Mallampati Class: 2 Mouth Opening: Normal (> 3cm) Thyromental Distance: Greater than 3 cm Neck Range of Motion: Full ROM Neck Circumference: Normal Teeth Condition: Normal Dentition ASA Classification ASA Score: ASA 2 Emergency Case?: No NPO Status NPO Status: NPO Clears >2 hours, Solids >8 hours Anesthesia Plan Resuscitation Status: Full Code Anesthesia Technique: General Anesthesia Airway Planned: Natural Airway Monitors Used: Standard Monitors
[2025-02-27 09:44] VITALS: BMI 32.5
--- NOTE | 2025-02-27 11:03 | W.COLOREPORT ---
Date of service: 02/27/25 Time of Service: 11:03 Colonoscopy Report Date of procedure: 02/27/25 Pre-op diagnosis general: screening for colorectal cancer Post-op diagnosis procedure note: same Procedure: Colonoscopy Surgeon: Veronica Ashford Anesthesia Type: MAC Estimated blood loss (mL): 0 Pathology: none sent Complications: None Disposition: same day Prep: Miralax/Dulcolax Procedure Description: Patient is here for routine screening colonoscopy. Informed consent was obtained and the patient was taken to the procedure area. The patient was placed in left lateral decubitus position on the procedure table. Timeout was performed. Anesthesia was induced. A lubricated colonoscope was inserted through the anus and passed to the cecum. The cecum was identified by the ileocecal valve and the appendiceal orifice. The scope was then slowly withdrawn and the colonic and rectal mucosa examined. There are no colon or rectal mass lesions, polyps, AVMs. There is no inflammatory change. No diverticulosis was seen. The scope was retroflexed in the anorectal junction examined. Uncomplicated internal hemorrhoids present. Assessment and plan; Normal screening colonoscopy. Average risk patient. Next screening colonoscopy will be due in 10 years.
--- NOTE | 2025-02-27 11:05 | W.PM.DSUDISC ---
Date of service: 02/27/25 Discharge Plan Disposition Patient Disposition: Home Condition: Stable Discharge Details Attending Provider: Veronica Ashford Primary Care Provider: Edil Key Recommendations for Follow Up Recommended tests to be ordered by follow up provider: Normal screening colonoscopy. Average risk patient. Next screening colonoscopy will be due in 10 years. Home Meds and New Rx's Prescriptions: Continued ibuprofen 200 mg capsule 200 mg PO Q6H PRN lisinopril-hydrochlorothiazide 20-25 mg tablet 1 tab PO QPM Qty: 90 3RF Patient Comments: TAKE ONE TABLET BY MOUTH EVERY DAY Rx Instructions: pt takes BP meds at night amlodipine 5 mg tablet 5 mg PO QPM Qty: 90 3RF Rx Instructions: pt takes BP meds at night Discontinued bisacodyl [Dulcolax (bisacodyl)] 5 mg tablet,delayed release (DR/EC) 5 mg PO ONCE Qty: 4 0RF Rx Instructions: Take per colonoscopy instructions provided by ordering providers office polyethylene glycol 3350 17 gram/dose powder 17 g PO ONCE Qty: 238 0RF Rx Instructions: Take per colonoscopy instructions provided by ordering providers office Discharge Instructions Activity:: Activity as Tolerated Diet:: As Tolerated Discharge Orders Discharge Orders: Discharge Order (Routine); Ordered 02/27/25 Ordered By: Veronica Ashford DS: Diagnosis Discharge Diagnosis (1) Screening for colorectal cancer: Status: Acute Asessment and Plan: Normal screening colonoscopy. Next screening colonoscopy will be due in 10 years.
[2025-02-27 11:08] VITALS: BP 95/68; PULSE 59; RESP 25; TEMP 36.4; O2SAT 97
--- NOTE | 2025-02-27 11:20 | W.ANESPOSTOP ---
Postoperative Evaluation Date, Time and Location Date Performed: 02/27/25 Time Performed: 11:22 Patient Location: Day Surgery Unit Vital Signs Most Recent Imported Vital Signs: Most Recent Vital Signs Temp Pulse Resp BP Pulse Ox 36.4 C L 57 L 18 128/87 97 02/27/25 07:45 02/27/25 07:45 02/27/25 07:45 02/27/25 07:45 02/27/25 07:45 Pain Score Most Recent Pain Score: Most Recent Pain Score Pain Level 0 02/27/25 07:45 Assessment Mental Status: Awake (Alert & Oriented to Patient Baseline) Airway and Respiratory Function: Patent airway with normal (patient baseline) respiratory exam Cardiovascular Function: Hemodynamically Stable Hydration Status: Adequately Hydrated Nausea & Vomiting: No Nausea or Vomiting Pain: Pt. Denies Any Pain Peripheral Nerve Block: Patient did not receive a nerve block
[2025-02-27 11:40] VITALS: BP 98/69; PULSE 55; RESP 16; TEMP 36.1; O2SAT 96
== END 2025-02-27 11:50 | disposition home or self-care (01) ==
PROVIDERS: PCP Nurse Practitioner Family; Visit Provider Surgery
PROC: 0DJD8ZZ Inspection of Lower Intestinal Tract, Via Natural or Artificial Opening Endoscopic (ICD-10-PCS; CPT 45378; principal; 2025-02-27 10:00)
DX: Z12.11 Encounter for screening for malignant neoplasm of colon (principal); Z12.12 Encounter for screening for malignant neoplasm of rectum
CPT/HCPCS: 45378; J2003; J2405; J2704

== ENCOUNTER → 2025-06-22 02:04 | Outpatient (CLI) | payer OTHER, SELFPAY ==
--- NOTE | 2025-06-22 07:23 | DI.RAD_ITS ---
Exam(s) XR SHOULDER LT COMPLETE 2+V EXAM: XR SHOULDER LT COMPLETE 2+V CLINICAL HISTORY: left shoulder pain,M25.512. TECHNIQUE: 2D digital imaging was performed of the left shoulder. Four images were obtained. AP, Grashey, Y-view and axillary views were obtained. COMPARISON: No exams were available for comparison FINDINGS: BONES: No acute fracture is present. No bony destructive lesion is seen. JOINTS: No dislocation present. There are [id number] degenerative changes seen at the acromioclavicular joint. There are mild degenerative changes seen at the glenohumeral joint with spurring seen at the inferior glenoid. SOFT TISSUE: Normal. IMPRESSION: 1. There is no acute abnormality. 2. Degenerative changes seen at the acromioclavicular and glenohumeral joints. 3. The preliminary [facility] report was reviewed. DATA REPOSITORY: RADIATION DOSE DELIVERED:
--- NOTE | 2025-06-22 08:08 | DI.[facility]_ITS ---
PROCEDURE INFORMATION: Exam: XR Left Shoulder Exam date and time: 06/22/2025 7:14 AM Age: 55 years old Clinical indication: Other: Left shoulder pain; Additional info: Anterior left shoulder pain TECHNIQUE: Imaging protocol: Radiologic exam of the left shoulder. Views: 2 or more views. COMPARISON: CR XR PORTABLE CHEST AP POST LINE 01/30/2023 11:50 PM FINDINGS: Bones/joints: Normal. Soft tissues: Normal. IMPRESSION: No acute findings. Dictated and Authenticated by: Ysabel Suarez MD. Orderin Yecenia Fuchs MD
== END ==
LOC: DI 02:05
PROVIDERS: PCP Nurse Practitioner Family; Visit Provider Physician Assistant
DX: M25.512 Pain in left shoulder (principal); M19.011 Primary osteoarthritis, right shoulder
CPT/HCPCS: 73030